=== PATIENT | female | born 1955 | race Caucasian/White ===

== ENCOUNTER 2022-10-22 09:23 | Emergency (ER) | payer MEDICARE, SELFPAY ==
[2022-10-22 09:30] VITALS: BP 148/74; PULSE 90; RESP 16; TEMP 36.2; O2SAT 98
--- NOTE | 2022-10-22 09:54 | ED.GENADULT ---
HPI - General Adult General Chief complaint: Extremity Problem,Nontraumatic Stated complaint: Bilateral Swollen Ankles Time Seen by Provider: 10/22/22 09:41 Source: patient and RN notes reviewed Mode of arrival: ambulatory Limitations: no limitations History of Present Illness HPI narrative: Patient presents today complaining of bilateral ankle swelling x5 days. Denies pain, redness, increased warmth. Denies numbness or tingling. She has been elevating her legs, which does help some. Denies history of hypertension, CHF. History of cellulitis a few months ago for which she was placed on doxycycline. Related Data Home Medications Medication Instructions Recorded Confirmed atorvastatin 80 mg tablet 80 mg PO DAILY 04/14/22 10/22/22 blood sugar diagnostic 04/14/22 10/22/22 donepezil 5 mg tablet 5 mg PO QHS 04/14/22 10/22/22 lancets 30 gauge (OneTouch Delcrista 04/14/22 10/22/22 Lancets) lisinopril 10 mg tablet 10 mg PO DAILY 04/14/22 10/22/22 metformin 500 mg tablet 500 mg PO BID 04/14/22 10/22/22 indapamide 1.25 mg tablet 1.25 mg PO DAILY 10/22/22 10/22/22 linagliptin 5 mg tablet (Tradjenta) 5 mg PO DAILY 10/22/22 10/22/22 pregabalin 50 mg capsule 50 mg PO DAILY 10/22/22 10/22/22 Allergies Allergy/AdvReac Type Severity Reaction Status Date / Time cefaclor [From [facility]] AdvReac Severe Blister Verified 10/22/22 09:26 Penicillins AdvReac Severe Difficulty Verified 10/22/22 09:26 Breathing Review of Systems Review of Systems: CONSTITUTIONAL: Denies body aches, fever, chills, or sweats. EYES: Denies visual changes, redness, or discharge. ENT: Denies rhinorrhea, congestion, sore throat, or otalgia. CARDIOVASCULAR: Denies chest pain, palpitations, or edema. RESPIRATORY: Denies cough or dyspnea. GASTROINTESTINAL: Denies abdominal pain, nausea, vomiting, or diarrhea. GENITOURINARY: Denies dysuria or hematuria. SKIN: Denies rash, itching, or wounds. MUSCULOSKELETAL: Denies back pain, joint pain, or myalgia.+ bilateral ankle swelling. NEUROLOGIC: Denies headache, numbness, tingling, or weakness. PSYCH: Denies depression or anxiety. [facility] Past Medical History Medical History Acute myeloid leukemia Anxiety and depression Cervical cancer Diabetes Neck pain Surgical History Surgical History History of hysterectomy for cancer Family History Family History Mother Acute myocardial infarction Dementia Parkinson disease possible. patient states her mother's hands shaked alot. Father Heart disease Embolism Social History Social History Smoking status: Unknown if ever smoked Comments At time of signature, I have reviewed and agree with nursing past medical, surgical, social and family history unless otherwise noted. Please see nursing chart for further information. There is no relevant family history pertinent to the presenting complaint Exam Narrative: GENERAL: Well-appearing, well-nourished, and in no acute distress. HEAD: Normocephalic, atraumatic. EYES: EOMI. No redness or drainage. Conjunctivae normal. ENT: Mucous membranes pink and moist. NECK: Normal AROM. CHEST: No respiratory distress. Clear to auscultation. HEART: Regular rate and rhythm. No murmur appreciated. Normal peripheral pulses. EXTREMITIES: Bilaterally ankles and distal lower legs have 1 to 2+ pitting edema. No tenderness, erythema, ecchymosis. Distal sensation intact. Capillary refill normal. Pedal pulses normal. Full range of motion of ankles and all toes. SKIN: Warm, dry, no rash. Capillary refill normal. Normal skin turgor. NEURO: No focal deficits. Alert and oriented x3. Gait steady. PSYCH: Normal affect. No signs of depression or anxiety. Course Co
== END 2022-10-22 09:59 | disposition home or self-care (01) ==
PROVIDERS: Emergency Provider Nurse Practitioner; PCP Internal Medicine
DX: R60.0 Localized edema (principal); E11.9 Type 2 diabetes mellitus without complications; C92.00 Acute myeloblastic leukemia, not having achieved remission; Z85.41 Personal history of malignant neoplasm of cervix uteri; Z79.84 Long term (current) use of oral hypoglycemic drugs
CPT/HCPCS: 99211; G0463

== ENCOUNTER 2022-11-24 17:30 | Inpatient (IN) | payer MEDICARE, SELFPAY ==
[2022-11-24] VITALS (11 sets, daily range): BP systolic 95–130; BP diastolic 54–76; PULSE 73–118; RESP 14–21; TEMP 36.4–37.7; O2SAT 94–98; BMI 28.3
--- NOTE | ~2022-11-24 | XR_ITS ---
EXAMINATION: XR chest 1V Exam Date/Time: 11/24/2022 17:50 CDT HISTORY: AMS Comparison: None. RESULT: Lines, tubes, and devices: None. Lungs and pleura: Senescent change, with mild bibasilar atelectasis/scar, otherwise clear. Cardiomediastinal silhouette: Unremarkable. Other: No acute osseous or upper abdominal finding. IMPRESSION: No acute cardiopulmonary process. Reviewed, dictated and finalized at location K.
--- NOTE | ~2022-11-24 | CT_ITS ---
EXAMINATION: CT abdomen pelvis wo con DATE: 11/24/2022 21:07 INDICATION: UTI, AMS TECHNIQUE: Computed tomography (CT) of the abdomen and pelvis was performed without intravenous contr ast. Automated exposure control and iterative reconstruction technique were employed. The dose-length product was 1085.81 mGy-cm. COMPARISON: None. FINDINGS: Lower thorax: Aortic valve, mitral, and coronary artery calcification cardiomegaly. Bilateral depende nt atelectasis. Liver: Normal. Biliary/Gallbladder: Gallbladder is normal. No bile duct dilation. Pancreas: No mass or duct dilation. Spleen: Normal. Adrenals:No mass. Kidneys: Moderate right and mild left perinephric stranding. Mild left pelviectasis. Bilateral nonobs tructing stones. GI tract: Moderate hiatal hernia. No small or large bowel dilation. Normal appendix. Diverticulosis w ithout diverticulitis. Mesentery/Peritoneum: No ascites, mass, or free air. Retroperitoneum: No mass. Atherosclerotic abdominal aortic and/or arterial calcifications. Pelvis: Absent uterus. Urinary bladder is partially decompressed by Palafox catheter and contains a lar ge volume of air.. Soft tissues: Multiple anterior midline fat-containing abdominal hernias, without evident complicatio n. Bones: No acute osseous finding. IMPRESSION: Cardiomegaly. Asymmetric right perinephric stranding, may be secondary to ascending infection/pyelone phritis. The urinary bladder is partially decompressed by a Palafox catheter. Reviewed, dictated and finalized at location K. IMPRESSION: Cardiomegaly. Asymmetric right perinephric stranding, may be secondary to ascen ding infection/pyelonephritis. The urinary bladder is partially decompressed by a Palafox catheter.
--- NOTE | ~2022-11-24 | CT_ITS ---
EXAMINATION: CT brain wo con DATE: 11/24/2022 18:43 INDICATION: AMS . TECHNIQUE: Computed tomography (CT) of the head was performed without intravenous contrast. The mA wa s adjusted according to patient size. Iterative reconstruction technique was employed. The dose-lengt h product was 605.33 mGy-cm. COMPARISON: None. FINDINGS: No acute intracranial hemorrhage or extra-axial fluid collection. No hydrocephalus, mass, or herniation. No acute ischemic infarct. Unremarkable dural venous sinus attenuation. No acute osseous abnormality. The aerated spaces are clear. Mild atrophy and chronic white matter change. Atherosclerotic intracranial calcification. Bilateral l ens replacements. IMPRESSION: No acute intracranial process. Reviewed, dictated and finalized at location K.
--- NOTE | ~2022-11-24 | US_ITS ---
EXAMINATION: US venous doppler [facility] DATE: 11/24/2022 18:45 INDICATION: swelling, redness, ams . TECHNIQUE: Grayscale images without and with compression and Doppler images of the left lower extremi ty veins were obtained. COMPARISON: None FINDINGS: Nonocclusive thrombus with partial compressibility in the distal superficial femoral vein, popliteal vein, posterior tibial veins, and peroneal veins. The left common femoral vein, profunda (deep) femo ral vein, proximal and mid superficial femoral vein, gastrocnemius vein, and greater saphenous vein a re patent. IMPRESSION: 1. Deep venous thrombosis from the distal superficial femoral vein to the posterior tibial and peron eal veins, likely subacute or chronic. Reviewed, dictated and finalized at location K. IMPRESSION: 1. Deep venous thrombosis from the distal superficial femoral vein to the post erior tibial and peroneal veins, likely subacute or chronic.
--- NOTE | ~2022-11-24 | US_ITS ---
US renal BI 11/25/2022 12:13 Procedure: Realtime transabdominal ultrasound of the kidneys and bladder. Indication: Acute renal insufficiency Comparison: No prior studies for comparison. Findings: Renal echotexture is normal bilaterally without hydronephrosis, contour deforming mass or r enal calculus. The right kidney measures 11.5 cm and left kidney measures 11.2 cm. Evaluation of the bladder is limited due to Palafox catheterization with decompression. Impression: 1: Unremarkable renal ultrasound. No stones, masses or hydronephrosis. Reviewed, dictated and finalized at location L. Impression: 1: Unremarkable renal ultrasound. No stones, masses or hydronephrosis.
[2022-11-24 17:44] LABS: Glucose Point of Care 176 mg/dl (65-105)
--- NOTE | 2022-11-24 17:53 | ECG_ITS ---
Measurements Intervals [place] Rate: 113 P: 32 NE: 167 QRS: -6 QRSD: 86 T: 32 QT: 322 QTc: 442 Interpretive Statements SINUS TACHYCARDIA EARLY PRECORDIAL R/S TRANSITION NONSPECIFIC T-WAVE ABNORMALITY- HIGH LATERAL LEADS ABNORMAL ECG NO PREVIOUS ECG AVAILABLE FOR COMPARISON Electronically Signed On 11-24-2022 18:58:19 CDT by Vidal Lynch D.O.
--- NOTE | 2022-11-24 18:03 | ED.AMS ---
HPI - Altered Mental Status General Chief Complaint: Altered Mental Status <Haleigh Delgadillo PA-C - Last Filed: 11/25/22 00:37> Stated Complaint: sepsis <Haleigh Delgadillo PA-C - Last Filed: 11/25/22 00:37> Time Seen by Provider: 11/24/22 17:44 <Haleigh Delgadillo PA-C - Last Filed: 11/25/22 00:37> History of Present Illness HPI narrative: 67-year-old female with a history of type 2 diabetes here via EMS due to altered mental status and weakness. Patient was last seen by her family 3 days ago. She was acting normal at that time, however according to family the past 3 days she has not been answering phone calls or text messages causing them to do a wellness visit today. Patient was found in her house lying in her own feces and urine, alert and oriented x1 which is off from her baseline ANO x3. Patient currently denies any pain. She is unsure what happened today or for the past 3 days, which limits history. <MADDY Cantrell Last Filed: 11/25/22 00:37> Related Data Home Medications: Home Medications Medication Instructions Recorded Confirmed atorvastatin 80 mg tablet 80 mg PO DAILY 04/14/22 10/22/22 blood sugar diagnostic 04/14/22 10/22/22 donepezil 5 mg tablet 5 mg PO QHS 04/14/22 10/22/22 lancets 30 gauge (OneTouch Delica 04/14/22 10/22/22 Lancets) lisinopril 10 mg tablet 10 mg PO DAILY 04/14/22 10/22/22 metformin 500 mg tablet 500 mg PO BID 04/14/22 10/22/22 indapamide 1.25 mg tablet 1.25 mg PO DAILY 10/22/22 10/22/22 linagliptin 5 mg tablet (Tradjenta) 5 mg PO DAILY 10/22/22 10/22/22 pregabalin 50 mg capsule 50 mg PO DAILY 10/22/22 10/22/22 <MADDY Cantrell Last Filed: 11/25/22 00:37> Allergies/Adverse Reactions: Allergies Allergy/AdvReac Type Severity Reaction Status Date / Time cefaclor [From [facility]] AdvReac Severe Blister Verified 10/22/22 09:26 Penicillins AdvReac Severe Difficulty Verified 10/22/22 09:26 Breathing <Haleigh Delgadillo PA-C - Last Filed: 11/25/22 00:37> Review of Systems Review of Systems: ROS unobtainable: Yes unobtainable due to mental status <Haleigh Delgadillo PA-C - Last Filed: 11/25/22 00:37> [facility] Past Medical History Medical History: Medical History Acute myeloid leukemia Anxiety and depression Cervical cancer Diabetes Neck pain <Haleigh Delgadillo PA-C - Last Filed: 11/25/22 00:37> Surgical History Surgical History: Surgical History History of hysterectomy for cancer <Haleigh Delgadillo PA-C - Last Filed: 11/25/22 00:37> Family History Family History: Family History Mother Acute myocardial infarction Dementia Parkinson disease possible. patient states her mother's hands shaked alot. Father Heart disease Embolism <Haleigh Delgadillo PA-C - Last Filed: 11/25/22 00:37> Social History Social History: Social History Smoking status: Never smoker Alcohol intake: never Substance use: never Substance use type: does not use Spiritual care concerns: No <Haleigh Delgadillo PA-C - Last Filed: 11/25/22 00:37> Exam Narrative: APPEARANCE: Alert and oriented x2. Head: Normocephalic and atraumatic. EYES: PERRLA/EOMI, conjunctivae clear NOSE: No nasal drainage EARS: External ear normal in appearance THROAT: Oropharynx is clear. Mucous membranes are moist. NECK: Supple. No adenopathy, no masses. RESPIRATORY: Airway patent, respirations nonlabored. Clear to auscultation bilaterally, no rales, rhonchi, wheezing. CARDIOVASCULAR: Tachycardic. ABDOMINAL: Normoactive bowel sounds. Soft, nontender, nondistended. No rebound tenderness or guarding. MUSCULOSKELETAL: Ther
[2022-11-24 18:09] LABS: Hematocrit 35.1 % (37.0-47.0); Hemoglobin 11.8 g/dL (12.0-15.0); Immature Platelet Fraction Pct 8.4 % (0.9-11.2); Mean Corpuscular HGB Conc 33.6 g/dl (32-36); Mean Corpuscular Hemoglobin 29.9 pg (26-34); Mean Corpuscular Volume 88.9 fl (80-100); Mean Platelet Volume 12.1 fl (7.4-10.4); Platelet Count Result 98 k/mm3 (150-375); Red Blood Count 3.95 M/mm3 (4.2-5.4); Red Cell Distribution Width 13.7 % (11.5-14.5); White Blood Count 20.4 K/mm3 (4.5-10.0)
[2022-11-24 18:19] LABS: Lactic Acid Reflex 2.1 mmol/L (0.7-2.0)
[2022-11-24 18:20] LABS: Ammonia < 9 umol/L (9-30)
[2022-11-24 18:21] LABS: Appearance Urine Turbid (Clear); Bacteria Urine 4+ /hpf; Bilirubin Urine 1+ (Negative); Blood Urine 3+ (Negative); Color Urine Dark Yellow (Yellow); Glucose Urine UA Negative (Negative); Hyaline Casts Urine Present /lpf; Ketones Urine Trace mg/dL (Negative); Leukocyte Esterase Ur 3+ LEU/UL (Negative); Nitrate Urine Negative (Negative); Non Pathogenic Casts >20; Protein Urine 2+ mg/dL (Negative); RBC Urine 21-50 /hpf (0-2); Specific Grav Ur 1.019 (1.001-1.035); Squamous Epithelial Cell Urine Few /hpf (Few); WBC Urine >100 /hpf
[2022-11-24 18:22] LABS: Add Urine Microscopic? YES
[2022-11-24] MEDS: SODIUM CHLORIDE 0.9% IV 1,000 ML 999 ML IV CONT ×2 (18:24→19:13)
[2022-11-24] MEDS: ONDANSETRON INJ 4 MG/2 ML VIAL IV PUSH (18:33)
[2022-11-24 18:41] LABS: Band Neutrophils Percent 15 % (0-6); Lymphocytes Absolute Manual 1.42 K/mm3 (1.1-4.5); Monocytes Absolute Manual 1.02 K/mm3 (0.1-0.90); Monocytes Percent Manual 5 % (3-9); Neutrophils Absolute Manual 17.95 K/mm3 (1.7-7.2); Neutrophils Percent Manual 73 % (46-73); Total Cells Counted 100
[2022-11-24 18:42] LABS: Alanine Aminotransferase 56 U/L (6-35); Albumin Level 3.8 g/dL (3.5-5.1); Alkaline Phosphatase 75 U/L (38-126); Anion Gap 10 mmol/L (8-16); Aspartate Amino Transferase 55 U/L (14-36); Bilirubin,Total 0.8 mg/dL (0.2-1.3); Blood Urea Nitrogen 71 mg/dL (7-17); Calcium 8.1 mg/dL (8.4-10.2); Carbon Dioxide 26 mmol/L (22-30); Chloride 104 mmol/L (98-107); Creatine Kinase 210 U/L (30-135); Estimated CRCL calculation 13 ml/min; Estimated Glomerular Filt Rate 12; Glucose 175 mg/dL (65-110); Platelet Estimate Decreased (Adequate); Potassium 4.7 mmol/L (3.4-5.0); Schistocytes None Seen (NORMAL); Sodium 140 mmol/L (137-145)
[2022-11-24 19:32] LABS: INR 1.4; Prothrombin Time 17.3 Seconds (11.1-14.7)
[2022-11-24 19:33] LABS: Partial Thromboplastin Time 38.3 SECONDS (22.3-36.8)
[2022-11-24] MEDS: MAGNESIUM SULFATE 3GM/D5W100ML 3 GM/100 ML BAG IVPB (19:35)
[2022-11-24] MEDS: SODIUM CHLORIDE 0.9% IV 1,000 ML 150 ML IV CONT (20:45)
[2022-11-24] MEDS: AZTREONAM 1 GM in SODIUM CHLORIDE 0.9% IV 50 ML 100 ML IVPB (20:47)
[2022-11-24] MEDS: APIXABAN 5 MG TABLET 10 MG PO (20:48)
--- NOTE | 2022-11-24 20:56 | PM.IMHP ---
H&P: HPI History of Present Illness Date/Time: 11/24/22 20:56 Chief Complaint: 67 years old female past medical history of hypertension diabetes alert oriented x3 at baseline presented to the hospital with altered mental status patient is poor historian patient was presented by EMS patient was not responded to the family last normal was 3 days ago at the ER patient was found to have significant leukocytosis elevated lactic acid acute renal failure UA was abnormal patient was recently treated for cellulitis of lower extremity with antibiotics patient was found confuse soiled with feces at home in the ER patient was found to have severe sepsis associated with UTI acute renal failure also was found to have lower extremity DVT patient was given 1 dose of therapeutic Lovenox will start heparin drip in a.m. patient was treated with empiric antibiotic patient has prolonged QTC interval telemetry was ordered. Review of Systems Review of Systems: limited due to mental status change [facility] Past Medical History Medical History (Updated 11/24/22 @ 21:01 by Shanti Porras MD) Acute myeloid leukemia Anxiety and depression Cervical cancer Diabetes Neck pain Surgical History Surgical History History of hysterectomy for cancer Family History Family History Mother Acute myocardial infarction Dementia Parkinson disease possible. patient states her mother's hands shaked alot. Father Heart disease Embolism Social History Social History Smoking status: Unknown if ever smoked Meds Home Medications and Allergies Home Medications Medication Instructions Recorded Confirmed Type atorvastatin 80 mg tablet 80 mg PO DAILY 04/14/22 10/22/22 History blood sugar diagnostic 04/14/22 10/22/22 History donepezil 5 mg tablet 5 mg PO QHS 04/14/22 10/22/22 History lancets 30 gauge (OneTouch Delica 04/14/22 10/22/22 History Lancets) lisinopril 10 mg tablet 10 mg PO DAILY 04/14/22 10/22/22 History metformin 500 mg tablet 500 mg PO BID 04/14/22 10/22/22 History indapamide 1.25 mg tablet 1.25 mg PO DAILY 10/22/22 10/22/22 History linagliptin 5 mg tablet (Tradjenta) 5 mg PO DAILY 10/22/22 10/22/22 History pregabalin 50 mg capsule 50 mg PO DAILY 10/22/22 10/22/22 History Allergies Allergy/AdvReac Type Severity Reaction Status Date / Time cefaclor [From [facility]] AdvReac Severe Blister Verified 10/22/22 09:26 Penicillins AdvReac Severe Difficulty Verified 10/22/22 09:26 Breathing Vital Signs Vital Signs - 24 hr 11/24/22 17:35 11/24/22 18:31 11/24/22 18:46 Temperature 98.8 F 99.9 F H 99.7 F H Pulse Rate 117 H 111 H 114 H Respiratory Rate 14 15 17 Blood Pressure 110/76 Pulse Oximetry 97 97 11/24/22 19:14 11/24/22 19:15 11/24/22 20:11 Temperature 97.5 F L Pulse Rate 114 H 112 H 109 H Respiratory Rate 18 18 Blood Pressure 115/56 L 110/54 L Pulse Oximetry 97 96 Exam Narrative: GENERAL: Well appearing, well-nourished, non-toxic, in no acute distress. HEAD: Normocephalic, atraumatic. NECK: Supple. No adenopathy, no masses. RESPIRATORY: Airway patent, respirations nonlabored. Clear to auscultation bilaterally, no rales, rhonchi, wheezing. CARDIOVASCULAR: Regular rate and rhythm without murmurs, rubs, or gallops. Peripheral pulses 2+ and equal bilaterally. ABDOMINAL: Soft, nontender, nondistended, no hepatosplenomegaly. Normoactive BS. MUSCULOSKELETAL: leg swelling SKIN: Warm, dry, normal color. No rashes. NEURO: intermittent confusionmove all extremities. PSYCHIATRIC: Appropriate mood and affect. Normal interaction. H&P: Results Labs Labs: Short CBC 11/24/22 Range/Units 17:58 WBC 20.4 H (4.5-10.0) K/mm3 Hgb 11.8 L (12.0-15.0) g/dL Hct 35.1 L (37.0-47.0) %
[2022-11-24 21:05] LABS: Reflex Lactic Acid Yes or No Add Lactic
[2022-11-24] MEDS: PHENAZOPYRIDINE HCL 100 MG TABLET PO (21:29)
[2022-11-24] MEDS: metroNIDAZOLE 500 MG/ISO 100ML 500 MG/100 ML BAG 100 MG IVPB (22:36)
--- NOTE | 2022-11-24 22:39 | PC.NURSE ---
Patient had rich catheter in place when 1899 shift nurse came on shift. Spoke with Haleigh STRATTON who stated that day shift had placed rich and order will be put in. Rich catheter now charted.
--- NOTE | 2022-11-24 23:20 | ADMGEN ---
This patient, Amanda Spain, was admitted to IMU Room 207-01. Patient/family oriented to hospital policies and general routines including ID bracelet, bed and alarms, visiting hours, pain management, procedures, bathroom and other care routines, personal items, smoking policy, room service/diet, and visiting hours. Information on how to activate the Rapid Response Team has been discussed. Patient/Family are encouraged to report perceived risks to care and to ask questions if they do not understand what they are told or what they should do.
[2022-11-24] MEDS: HYDROcodone/acetaminophen (*CRX) 5-325 MG TABLET 1 TAB PO (23:37)
[2022-11-25] VITALS (14 sets, daily range): BP systolic 111–132; BP diastolic 50–71; PULSE 88–127; RESP 16–22; TEMP 36.4–37.4; O2SAT 93–97
[2022-11-25 04:50] LABS: Hematocrit 30.5 % (37.0-47.0); Hemoglobin 9.9 g/dL (12.0-15.0); Immature Platelet Fraction Pct 5.5 % (0.9-11.2); Mean Corpuscular HGB Conc 32.5 g/dl (32-36); Mean Corpuscular Hemoglobin 28.9 pg (26-34); Mean Corpuscular Volume 88.9 fl (80-100); Mean Platelet Volume 11.4 fl (7.4-10.4); Platelet Count Result 73 k/mm3 (150-375); Red Blood Count 3.43 M/mm3 (4.2-5.4); Red Cell Distribution Width 13.5 % (11.5-14.5); White Blood Count 13.3 K/mm3 (4.5-10.0)
[2022-11-25 05:04] LABS: Alanine Aminotransferase 38 U/L (6-35); Albumin Level 2.8 g/dL (3.5-5.1); Alkaline Phosphatase 80 U/L (38-126); Anion Gap 7 mmol/L (8-16); Aspartate Amino Transferase 43 U/L (14-36); Bilirubin,Total 0.6 mg/dL (0.2-1.3); Blood Urea Nitrogen 73 mg/dL (7-17); Calcium 7.3 mg/dL (8.4-10.2); Carbon Dioxide 25 mmol/L (22-30); Chloride 109 mmol/L (98-107); Estimated CRCL calculation 16 ml/min; Estimated Glomerular Filt Rate 16; Glucose 164 mg/dL (65-110); Potassium 3.4 mmol/L (3.4-5.0); Sodium 141 mmol/L (137-145)
[2022-11-25 05:22] LABS: Band Neutrophils Percent 7 % (0-6); Lymphocytes Absolute Manual 0.66 K/mm3 (1.1-4.5); Monocytes Absolute Manual 0.93 K/mm3 (0.1-0.90); Monocytes Percent Manual 7 % (3-9); Neutrophils Percent Manual 81 % (46-73); Total Cells Counted 100
[2022-11-25 05:23] LABS: Acanthocytes 3+ (NORMAL); Anisocytosis 1+ (NORMAL); Ovalocytes 2+ (NORMAL); Platelet Estimate Decreased (Adequate); Schistocytes None Seen (NORMAL)
[2022-11-25] MEDS: SODIUM CHLORIDE 0.9% IV 1,000 ML 100 ML IV CONT ×2 (05:39→18:21)
[2022-11-25] MEDS: metroNIDAZOLE 500 MG/ISO 100ML 500 MG/100 ML BAG 100 MG IVPB (05:39)
[2022-11-25] MEDS: AZTREONAM 1 GM in SODIUM CHLORIDE 0.9% IV 50 ML 100 ML IVPB ×2 (09:18→20:40)
[2022-11-25] MEDS: APIXABAN 5 MG TABLET 10 MG PO ×2 (09:19→20:41)
[2022-11-25] MEDS: FAMOTIDINE 20 MG TABLET PO ×2 (09:19→20:40)
--- NOTE | 2022-11-25 12:07 | PM.IMPN ---
Progress Note: A&P Assessment and Plan (1) Severe sepsis: Code(s): A41.9 - Sepsis, unspecified organism; R65.20 - Severe sepsis without septic shock Status: Acute Assessment and Plan: probably related to UTI IV Rocephin follow urine and blood culture (2) UTI (urinary tract infection): Code(s): N39.0 - Urinary tract infection, site not specified Status: Acute Assessment and Plan: continue IV antibiotics (3) Acute renal failure: Code(s): N17.9 - Acute kidney failure, unspecified Status: Acute Assessment and Plan: most likely related to severe sepsis. Continue IV fluids. Renal ultrasound ordered (4) Diabetes: Code(s): E11.9 - Type 2 diabetes mellitus without complications Status: Acute Assessment and Plan: insulin sliding scale (5) Acute metabolic encephalopathy: Code(s): G93.41 - Metabolic encephalopathy Status: Acute Assessment and Plan: most likely related to severe sepsis CT head unremarkable (6) DVT (deep venous thrombosis): Code(s): I82.409 - Acute embolism and thrombosis of unspecified deep veins of unspecified lower extremity Status: Acute Assessment and Plan: ?Deep venous thrombosis from the distal superficial femoral vein to the posterior tibial and peroneal veins, likely subacute or chronic received Lovenox Continue Eliquis (7) Hyperlipidemia: Code(s): E78.5 - Hyperlipidemia, unspecified Status: Acute Assessment and Plan: patient at home on statin (8) Acute myeloid leukemia: Code(s): C92.00 - Acute myeloblastic leukemia, not having achieved remission Status: Acute Subjective Date/time seen: 11/25/22 12:07 Interval history: Patient is confused. Oriented only to person Review of Systems Review of Systems: limited due to mental status change Exam Narrative: GENERAL: Well appearing, well-nourished, non-toxic, in no acute distress. HEAD: Normocephalic, atraumatic. NECK: Supple. No adenopathy, no masses. RESPIRATORY: Airway patent, respirations nonlabored. Clear to auscultation bilaterally, no rales, rhonchi, wheezing. CARDIOVASCULAR: Regular rate and rhythm without murmurs, rubs, or gallops. Peripheral pulses 2+ and equal bilaterally. ABDOMINAL: Soft, nontender, nondistended, no hepatosplenomegaly. Normoactive BS. MUSCULOSKELETAL: leg swelling SKIN: Warm, dry, normal color. No rashes. NEURO: intermittent confusionmove all extremities. PSYCHIATRIC: Appropriate mood and affect. Normal interaction. Objective Data Vital Signs Vital Signs: Vital Signs - 24 hr 11/24/22 17:35 11/24/22 18:31 11/24/22 18:46 Temperature 98.8 F 99.9 F H 99.7 F H Pulse Rate 117 H 111 H 114 H Respiratory Rate 14 15 17 Blood Pressure 110/76 Pulse Oximetry 97 97 Oxygen Delivery 11/24/22 19:14 11/24/22 19:15 11/24/22 20:11 Temperature 97.5 F L Pulse Rate 114 H 112 H 109 H Respiratory Rate 18 18 Blood Pressure 115/56 L 110/54 L Pulse Oximetry 97 96 Oxygen Delivery 11/24/22 21:43 11/24/22 22:48 11/24/22 23:11 Temperature 99.3 F 97.6 F Pulse Rate 105 H 114 H 73 Respiratory Rate 17 21 H 20 Blood Pressure 126/59 L 130/72 95/66 L Pulse Oximetry 94 98 97 Oxygen Delivery 11/24/22 23:16 11/24/22 23:53 11/24/22 23:53 Temperature Pulse Rate 73 118 H Respiratory Rate Blood Pressure Pulse Oximetry Oxygen Delivery Room Air 11/25/22 02:00 11/25/22 04:00 11/25/22 04:00 Temperature 98.0 F Pulse Rate 125 H 119 H 127 H Respiratory Rate 20 Blood Pressure 111/50 L Pulse Oximetry 97 Oxygen Delivery 11/25/22 04:00 11/25/22 08:00 11/25/22 10:05 Temperature 99.3 F Pulse Rate 127 H 118 H Respiratory Rate 20 20 Blood Pressure 125/71 Pulse Oximetry 97 95 95 Oxygen Delivery Room Air Room Air Intake/Output Intake/Output: Intake & Output 11/22/22 11/23/22 11/24/22 11/25/22 23:
[2022-11-25 18:28] LABS: Glucose Point of Care 153 mg/dl (65-105)
[2022-11-25 20:38] LABS: Glucose Point of Care 134 mg/dl (65-105)
[2022-11-25] MEDS: HYDROcodone/acetaminophen (*CRX) 5-325 MG TABLET 1 TAB PO (20:40)
[2022-11-26] VITALS (8 sets, daily range): BP systolic 116–136; BP diastolic 57–72; PULSE 76–94; RESP 16–20; TEMP 35.8–37.2; O2SAT 94–100
[2022-11-26 04:25] LABS: Hematocrit 31.7 % (37.0-47.0); Hemoglobin 10.2 g/dL (12.0-15.0); Immature Platelet Fraction Pct 7.7 % (0.9-11.2); Mean Corpuscular HGB Conc 32.2 g/dl (32-36); Mean Corpuscular Hemoglobin 29.3 pg (26-34); Mean Corpuscular Volume 91.1 fl (80-100); Platelet Count Result 58 k/mm3 (150-375); Red Blood Count 3.48 M/mm3 (4.2-5.4); Red Cell Distribution Width 13.8 % (11.5-14.5); White Blood Count 11.2 K/mm3 (4.5-10.0)
[2022-11-26 04:33] LABS: Anion Gap 6 mmol/L (8-16); Blood Urea Nitrogen 65 mg/dL (7-17); Calcium 7.1 mg/dL (8.4-10.2); Carbon Dioxide 25 mmol/L (22-30); Chloride 107 mmol/L (98-107); Estimated CRCL calculation 26 ml/min; Estimated Glomerular Filt Rate 28; Glucose 118 mg/dL (65-110); Potassium 3.3 mmol/L (3.4-5.0); Sodium 138 mmol/L (137-145)
[2022-11-26] MEDS: HYDROcodone/acetaminophen (*CRX) 5-325 MG TABLET 1 TAB PO ×3 (04:53→21:31)
[2022-11-26] MEDS: SODIUM CHLORIDE 0.9% IV 1,000 ML 100 ML IV CONT ×2 (04:54→17:12)
[2022-11-26 05:04] LABS: Anisocytosis 2+ (NORMAL); Band Neutrophils Percent 25 % (0-6); Eosinophils Absolute Manual 0.11 K/mm3 (0.02-0.5); Eosinophils Percent Manual 1 % (0-4); Lymphocytes Absolute Manual 0.67 K/mm3 (1.1-4.5); Metamyelocytes Percent 1 %; Microcytosis 2+ (NORMAL); Monocytes Absolute Manual 0.44 K/mm3 (0.1-0.90); Monocytes Percent Manual 4 % (3-9); Neutrophils Absolute Manual 9.85 K/mm3 (1.7-7.2); Neutrophils Percent Manual 63 % (46-73); Platelet Estimate Decreased (Adequate); Total Cells Counted 100
[2022-11-26 05:05] LABS: Acanthocytes 1+ (NORMAL); Burr Cells 3+ (NORMAL); Macrocytosis 1+ (NORMAL); Poikilocytosis 3+ (NORMAL); Schistocytes None Seen (NORMAL)
[2022-11-26] MEDS: FAMOTIDINE 20 MG TABLET PO ×2 (08:42→21:29)
[2022-11-26] MEDS: AZTREONAM 1 GM in SODIUM CHLORIDE 0.9% IV 50 ML 100 ML IVPB ×2 (08:42→21:29)
[2022-11-26] MEDS: APIXABAN 5 MG TABLET 10 MG PO ×2 (08:42→21:29)
--- NOTE | 2022-11-26 09:24 | WPDNEUROLOGY ---
Neurology EEG Report General Information Date of Study: 11/25/22 TEST Routine EEG DIAGNOSIS Confusion CONDITION OF RECORDING Drowsy, asleep EEG NUMBER [id number] CLINICAL HISTORY Patient unable to rpovide any history. She was found at home unresponsive and remains confused and lethargic. EEG DESCRIPTION The recording is continuous. The background rhythm is slowed in the range of diffuse theta and delta range waves. There are no significant asymmetries in background. Intermittent triphasic waves are noted throughout the recording. Normal sleep architecture was not observed. There are no epileptiform discharges or electrographic seizures noted during the recording. Hyperventilation and photic stimulation were not performed. IMPRESSION This is an abnormal routine EEG due to the presence of generalized slowing of background as well as intermittent triphasic waves noted throughout the recording. These findings can be seen in the setting of metabolic encephalopathy due to unspecified etiology. Clinical correlation is recommended.
--- NOTE | 2022-11-26 10:54 | PM.IMPN ---
Progress Note: A&P Assessment and Plan (1) Severe sepsis: Code(s): A41.9 - Sepsis, unspecified organism; R65.20 - Severe sepsis without septic shock Status: Acute Assessment and Plan: probably related to UTI IV Rocephin Blood culture and urine culture growing E coli. Sensitivities pending (2) UTI (urinary tract infection): Code(s): N39.0 - Urinary tract infection, site not specified Status: Acute Assessment and Plan: continue IV Rocephin. Urine culture growing E coli (3) Acute renal failure: Code(s): N17.9 - Acute kidney failure, unspecified Status: Acute Assessment and Plan: Creatinine significantly improved. most likely related to severe sepsis. Continue IV fluids. Renal ultrasound normal (4) Diabetes: Code(s): E11.9 - Type 2 diabetes mellitus without complications Status: Acute Assessment and Plan: insulin sliding scale (5) Acute metabolic encephalopathy: Code(s): G93.41 - Metabolic encephalopathy Status: Acute Assessment and Plan: most likely related to severe sepsis CT head unremarkable Eeg conforms metabolic encephalopathy (6) DVT (deep venous thrombosis): Code(s): I82.409 - Acute embolism and thrombosis of unspecified deep veins of unspecified lower extremity Status: Acute Assessment and Plan: ?Deep venous thrombosis from the distal superficial femoral vein to the posterior tibial and peroneal veins, likely subacute or chronic received Lovenox Continue Eliquis (7) Hyperlipidemia: Code(s): E78.5 - Hyperlipidemia, unspecified Status: Acute Assessment and Plan: patient at home on statin (8) Memory loss: Code(s): R41.3 - Other amnesia Status: Acute Assessment and Plan: Patient's sister reports patient is forgetful. Patient denies. Will get PT and OT. Will ask OT to do a mini-mental status examination. Subjective Date/time seen: 11/26/22 10:54 Interval history: Awake alert oriented Review of Systems Review of Systems: All systems reviewed & are unremarkable except as noted in HPI and below Exam Narrative: GENERAL: Well appearing, well-nourished, non-toxic, in no acute distress. HEAD: Normocephalic, atraumatic. NECK: Supple. No adenopathy, no masses. RESPIRATORY: Airway patent, respirations nonlabored. Clear to auscultation bilaterally, no rales, rhonchi, wheezing. CARDIOVASCULAR: Regular rate and rhythm without murmurs, rubs, or gallops. Peripheral pulses 2+ and equal bilaterally. ABDOMINAL: Soft, nontender, nondistended, no hepatosplenomegaly. Normoactive BS. MUSCULOSKELETAL: leg swelling SKIN: Warm, dry, normal color. No rashes. NEURO: intermittent confusionmove all extremities. PSYCHIATRIC: Appropriate mood and affect. Normal interaction. Objective Data Vital Signs Vital Signs: Vital Signs - 24 hr 11/25/22 12:00 11/25/22 12:00 11/25/22 16:00 Temperature 99.1 F Pulse Rate 107 H 110 H 93 Respiratory Rate 18 Blood Pressure 121/54 L Pulse Oximetry 95 Oxygen Delivery 11/25/22 14:00 11/25/22 16:45 11/25/22 18:00 Temperature 98 F Pulse Rate 106 H 106 H 106 H Respiratory Rate 22 H Blood Pressure 124/55 L Pulse Oximetry 95 Oxygen Delivery 11/25/22 20:00 11/25/22 20:00 11/25/22 20:00 Temperature 98.4 F Pulse Rate 103 H 91 91 Respiratory Rate 20 20 Blood Pressure 132/53 L Pulse Oximetry 93 93 Oxygen Delivery Room Air 11/25/22 21:42 11/25/22 23:31 11/25/22 23:50 Temperature 97.6 F Pulse Rate 88 103 H 97 Respiratory Rate 16 Blood Pressure 125/61 Pulse Oximetry 96 Oxygen Delivery 11/25/22 23:50 11/26/22 02:00 11/26/22 04:00 Temperature Pulse Rate 98 76 93 Respiratory Rate 16 Blood Pressure Pulse Oximetry 96 Oxygen Delivery Room Air 11/26/22 04:00 11/26/22 04:00 11/26/22 05:51 Temperature 97.1 F L Pulse Rate 93 85 90 Respiratory Rat
[2022-11-26 12:19] LABS: Glucose Point of Care 119 mg/dl (65-105)
--- NOTE | 2022-11-26 12:41 | PC.NURSE ---
This patient, Amanda Spain, was transferred to ROOM [id number] on 11/26/22 at 1242. Personal belongings sent with patient. Report given to 3 medical to Sariah Nurse. Appropriate documentation sent with patient.
[2022-11-26 17:09] LABS: Glucose Point of Care 113 mg/dl (65-105)
[2022-11-26] MEDS: LIDOCAINE 5% PATCH 1 PATCH TRANSDERM (18:06)
[2022-11-26 21:51] LABS: Glucose Point of Care 110 mg/dl (65-105)
[2022-11-27] MEDS: SODIUM CHLORIDE 0.9% IV 1,000 ML 100 ML IV CONT ×3 (03:30→21:21)
[2022-11-27 05:10] VITALS: BP 149/76; PULSE 95; RESP 16; TEMP 36.4; O2SAT 100
[2022-11-27] MEDS: HYDROcodone/acetaminophen (*CRX) 5-325 MG TABLET 1 TAB PO ×3 (06:21→21:20)
[2022-11-27 07:00] LABS: Hematocrit 35.9 % (37.0-47.0); Hemoglobin 11.4 g/dL (12.0-15.0); Immature Platelet Fraction Pct 7.6 % (0.9-11.2); Mean Corpuscular HGB Conc 31.8 g/dl (32-36); Mean Corpuscular Hemoglobin 28.4 pg (26-34); Mean Corpuscular Volume 89.3 fl (80-100); Mean Platelet Volume 11.4 fl (7.4-10.4); Platelet Count Result 55 k/mm3 (150-375); Red Blood Count 4.02 M/mm3 (4.2-5.4); Red Cell Distribution Width 13.6 % (11.5-14.5); White Blood Count 8.2 K/mm3 (4.5-10.0)
[2022-11-27 07:50] LABS: Band Neutrophils Percent 10 % (0-6); Basophils Absolute Manual 0.08 K/mm3 (0.0-0.1); Basophils Percent Manual 1 % (0-1); Eosinophils Absolute Manual 0.16 K/mm3 (0.02-0.5); Eosinophils Percent Manual 2 % (0-4); Lymphocytes Percent Manual 11 % (18-44); Monocytes Absolute Manual 0.49 K/mm3 (0.1-0.90); Monocytes Percent Manual 6 % (3-9); Neutrophils Absolute Manual 6.56 K/mm3 (1.7-7.2); Neutrophils Percent Manual 70 % (46-73); Total Cells Counted 100
[2022-11-27 07:51] LABS: Platelet Estimate Decreased (Adequate)
[2022-11-27 07:52] LABS: Burr Cells 3+ (NORMAL); Schistocytes None Seen (NORMAL)
[2022-11-27 08:43] LABS: Glucose Point of Care 101 mg/dl (65-105)
[2022-11-27 09:10] VITALS: O2SAT 95
[2022-11-27] MEDS: APIXABAN 5 MG TABLET 10 MG PO ×2 (09:10→21:19)
[2022-11-27] MEDS: FAMOTIDINE 20 MG TABLET PO ×2 (09:10→21:19)
[2022-11-27] MEDS: LIDOCAINE 5% PATCH 1 PATCH TRANSDERM (09:15)
[2022-11-27] MEDS: AZTREONAM 1 GM in SODIUM CHLORIDE 0.9% IV 50 ML 100 ML IVPB ×2 (09:15→21:20)
[2022-11-27 09:40] VITALS: O2SAT 94
--- NOTE | 2022-11-27 11:15 | PM.IMPN ---
Progress Note: A&P Assessment and Plan (1) Severe sepsis: Code(s): A41.9 - Sepsis, unspecified organism; R65.20 - Severe sepsis without septic shock Status: Acute Assessment and Plan: Due to UTI IV Aztreonam Blood culture and urine culture growing E coli Sensitive to Ceftriaxone, so 11/27 switched that (2) UTI (urinary tract infection): Code(s): N39.0 - Urinary tract infection, site not specified Status: Acute Assessment and Plan: 11/27 switched from Aztreonam to Ceftriaxone, antibiotic day 3 Blood &Urine culture growing sensitive E coli (3) Acute renal failure: Code(s): N17.9 - Acute kidney failure, unspecified Status: Acute Assessment and Plan: Creatinine improved to 1.8 on 11/26, f/u labs Renal ultrasound normal (4) Diabetes: Code(s): E11.9 - Type 2 diabetes mellitus without complications Status: Acute Assessment and Plan: insulin sliding scale 11/27 FBS 101 (5) Acute metabolic encephalopathy: Code(s): G93.41 - Metabolic encephalopathy Status: Acute Assessment and Plan: most likely related to severe sepsis CT head unremarkable Eeg confirms metabolic encephalopathy 11/27 Resolved (6) DVT (deep venous thrombosis): Code(s): I82.409 - Acute embolism and thrombosis of unspecified deep veins of unspecified lower extremity Status: Acute Assessment and Plan: ?Deep venous thrombosis from the distal superficial femoral vein to the posterior tibial and peroneal veins, likely subacute or chronic received Lovenox Continue Eliquis (7) Neck pain: Code(s): M54.2 - Cervicalgia Status: Acute Assessment and Plan: Tender posterior paracervical and upper trapezii Clinically musculoskeletal pain (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 Posterior neck to nuchal. Worse with movement. No weakness or numbness. No visual sx's. No dizziness. Mentation seems NL to her and to daughter at bedside. Denied CP, sob, gi/gu issues. Review of Systems Review of Systems: All systems reviewed & are unremarkable except as noted in HPI and below Exam Narrative: GENERAL: Well appearing, well-nourished, non-toxic, in no acute distress. HEAD: Normocephalic, atraumatic. NECK: Supple. No adenopathy, no masses. RESPIRATORY: Airway patent, respirations nonlabored. Clear to auscultation bilaterally, no rales, rhonchi, wheezing. CARDIOVASCULAR: Regular rate and rhythm without murmurs, rubs, or gallops. Peripheral pulses 2+ and equal bilaterally. ABDOMINAL: Soft, nontender, nondistended, no hepatosplenomegaly. Normoactive BS. MUSCULOSKELETAL: Tender posterior neck, upper borders of trapezii bilaterally SKIN: Warm, dry, normal color. No rashes. NEURO: CN symmetric to inspection, tone and strength in UE & LE bilaterally PSYCHIATRIC: Appropriate mood and affect. Normal interaction. Objective Data Vital Signs Vital Signs: Vital Signs - 24 hr 11/26/22 12:00 11/26/22 12:00 11/26/22 15:00 Temperature 96.4 F L 97.3 F L Pulse Rate 86 85 94 Respiratory Rate 20 16 Blood Pressure 120/57 L 136/72 Pulse Oximetry 100 100 Oxygen Delivery 11/26/22 20:18 11/27/22 05:10 11/27/22 09:40 Temperature 98.9 F 97.6 F Pulse Rate 94 95 Respiratory Rate 18 16 Blood Pressure 132/62 149/76 H Pulse Oximetry 94 100 94 Oxygen Delivery Room Air Intake/Output Intake/Output: Intake & Output 11/24/22 11/25/22 11/26/22 11/27/22 23:59 23:59 23:59 23:59 Intake Total 2250 2040 3650 1400 Output Total 1950 1785 900 Balance 2250 90 1865 500 Meds/Results Medications: Active Medications Generic Name Dose Route Start Last Admin Trade Name Freq
[2022-11-27 11:55] VITALS: BMI 10.0
[2022-11-27 11:55] LABS: Glucose Point of Care 99 mg/dl (65-105)
[2022-11-27 16:00] VITALS: BP 151/75; PULSE 99; RESP 18; TEMP 36.4; O2SAT 99
[2022-11-27 17:34] LABS: Glucose Point of Care 127 mg/dl (65-105)
[2022-11-27 19:44] VITALS: BP 150/66; PULSE 100; RESP 16; TEMP 36.6; O2SAT 99
[2022-11-27 20:53] LABS: Glucose Point of Care 130 mg/dl (65-105)
[2022-11-28] MEDS: HYDROcodone/acetaminophen (*CRX) 5-325 MG TABLET 1 TAB PO ×2 (03:30→20:21)
[2022-11-28 04:18] VITALS: BP 175/77; PULSE 99; RESP 16; TEMP 36.6; O2SAT 99
[2022-11-28 08:36] LABS: Glucose Point of Care 116 mg/dl (65-105)
[2022-11-28 08:50] LABS: Hematocrit 32.3 % (37.0-47.0); Hemoglobin 10.7 g/dL (12.0-15.0); Immature Platelet Fraction Pct 4.9 % (0.9-11.2); Mean Corpuscular HGB Conc 33.1 g/dl (32-36); Mean Corpuscular Volume 87.5 fl (80-100); Mean Platelet Volume 11.2 fl (7.4-10.4); Platelet Count Result 83 k/mm3 (150-375); Red Blood Count 3.69 M/mm3 (4.2-5.4); Red Cell Distribution Width 13.6 % (11.5-14.5)
[2022-11-28 09:30] VITALS: PULSE 93; RESP 16; O2SAT 98
[2022-11-28] MEDS: FAMOTIDINE 20 MG TABLET PO ×2 (09:31→20:21)
[2022-11-28] MEDS: APIXABAN 5 MG TABLET 10 MG PO ×2 (09:31→20:21)
[2022-11-28] MEDS: AZTREONAM 1 GM in SODIUM CHLORIDE 0.9% IV 50 ML 100 ML IVPB ×2 (09:32→20:22)
[2022-11-28] MEDS: LIDOCAINE 5% PATCH 1 PATCH TRANSDERM (09:32)
[2022-11-28 09:40] LABS: Alanine Aminotransferase 19 U/L (6-35); Albumin Level 2.6 g/dL (3.5-5.1); Alkaline Phosphatase 124 U/L (38-126); Anion Gap 4 mmol/L (8-16); Aspartate Amino Transferase 21 U/L (14-36); Bilirubin,Total 0.6 mg/dL (0.2-1.3); Blood Urea Nitrogen 33 mg/dL (7-17); Calcium 7.7 mg/dL (8.4-10.2); Carbon Dioxide 24 mmol/L (22-30); Chloride 109 mmol/L (98-107); Estimated CRCL calculation 49 ml/min; Estimated Glomerular Filt Rate 55; Glucose 117 mg/dL (65-110); Sodium 137 mmol/L (137-145)
[2022-11-28] MEDS: ACETAMINOPHEN 325 MG TABLET 650 MG PO (10:02)
[2022-11-28] MEDS: SODIUM CHLORIDE 0.9% IV 1,000 ML 100 ML IV CONT ×2 (10:03→20:21)
[2022-11-28 12:21] LABS: Glucose Point of Care 172 mg/dl (65-105)
--- NOTE | 2022-11-28 13:54 | PM.IMPN ---
Progress Note: A&P Assessment and Plan (1) Severe sepsis: Code(s): A41.9 - Sepsis, unspecified organism; R65.20 - Severe sepsis without septic shock Status: Acute Assessment and Plan: Due to UTI IV Aztreonam Blood culture and urine culture growing E coli (2) UTI (urinary tract infection): Qualifiers: Urinary tract infection type: site unspecified Hematuria presence: without hematuria Qualified Code(s): N39.0 - Urinary tract infection, site not specified Code(s): N39.0 - Urinary tract infection, site not specified Status: Acute Assessment and Plan: 11/28 Aztreonam Day 4 Blood &Urine culture growing sensitive E coli Await disposition per care coordination (3) Acute renal failure: Qualifiers: Acute renal failure type: unspecified Qualified Code(s): N17.9 - Acute kidney failure, unspecified Code(s): N17.9 - Acute kidney failure, unspecified Status: Acute Assessment and Plan: Creatinine improved to 1.8 on 11/26, 11/28 1.0, so stopped IVF and encouraged PO intake Renal ultrasound normal (4) Diabetes: Code(s): E11.9 - Type 2 diabetes mellitus without complications Status: Acute Assessment and Plan: insulin sliding scale 11/27 FBS 101, 11/28 116 (5) Acute metabolic encephalopathy: Code(s): G93.41 - Metabolic encephalopathy Status: Acute Assessment and Plan: most likely related to severe sepsis CT head unremarkable Eeg confirms metabolic encephalopathy 11/27 seemed to be close to baseline, may have underlying early dementia (6) DVT (deep venous thrombosis): Code(s): I82.409 - Acute embolism and thrombosis of unspecified deep veins of unspecified lower extremity Status: Acute Assessment and Plan: ?Deep venous thrombosis from the distal superficial femoral vein to the posterior tibial and peroneal veins, likely subacute or chronic received Lovenox Continue Eliquis (7) Neck pain: Code(s): M54.2 - Cervicalgia Status: Acute Assessment and Plan: Tender posterior paracervical and upper trapezii Clinically musculoskeletal pain Improving with heat, PT, Tylenol (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 Ruvalcaba, Dr. Darnell were her oncologists per hx from pt) 11/27 WBC WNL with platelets 55k (stable from 11/26), 11/28 plt 83K Subjective Date/time seen: 11/28/22 13:54 Interval history: Posterior neck feeling much better today. Headache doing better. Taking only Tylenol and using the heating pad. Able to get up in the chair with physical therapy and with [facility]. Able to move neck more. Eating better when family brought food in from home. Does not like the food here. Less confused today. Denied chest pain or shortness of breath GI or issues. Denied focal weakness or numbness. Denied abnormal bleeding. Review of Systems Review of Systems: All systems reviewed & are unremarkable except as noted in HPI and below Exam Narrative: GENERAL: Well appearing, well-nourished, non-toxic, in no acute distress. HEAD: Normocephalic, atraumatic. NECK: Supple. No adenopathy, no masses. RESPIRATORY: Airway patent, respirations nonlabored. Clear to auscultation bilaterally, no rales, rhonchi, wheezing. CARDIOVASCULAR: Regular rate and rhythm without murmurs, rubs, or gallops. Peripheral pulses 2+ and equal bilaterally. ABDOMINAL: Soft, nontender, nondistended, no hepatosplenomegaly. Normoactive BS. MUSCULOSKELETAL: Tender posterior neck, upper borders of trapezii bilaterally SKIN: Warm, dry, normal color. No rashes. NEURO: CN symmetric to inspection, tone and strength in UE & LE bilaterally PSYCHIATRIC: Appropriate mood and affect. Normal interaction. Oriented to person, place, year (thought
[2022-11-28 14:06] VITALS: BP 128/69; PULSE 93; RESP 16; TEMP 37; O2SAT 98
[2022-11-28 17:30] LABS: Glucose Point of Care 150 mg/dl (65-105)
[2022-11-28] MEDS: POTASSIUM CHLORIDE 20 MEQ TABLET 40 MEQ PO (18:17)
[2022-11-28 19:50] VITALS: BP 146/59; PULSE 96; RESP 18; TEMP 36.6; O2SAT 100
[2022-11-28] MEDS: INSULIN ASPART (*BKC) 100 UNITS/ML SUB-Q (20:23)
[2022-11-28 20:46] LABS: Glucose Point of Care 229 mg/dl (65-105)
[2022-11-29 04:14] VITALS: BP 152/69; PULSE 90; RESP 16; TEMP 36.8; O2SAT 100
[2022-11-29] MEDS: SODIUM CHLORIDE 0.9% IV 1,000 ML 100 ML IV CONT (04:49)
[2022-11-29] MEDS: HYDROcodone/acetaminophen (*CRX) 5-325 MG TABLET 1 TAB PO ×3 (04:50→21:29)
[2022-11-29 05:51] LABS: Hematocrit 33.8 % (37.0-47.0); Hemoglobin 11.1 g/dL (12.0-15.0); Immature Platelet Fraction Pct 5.7 % (0.9-11.2); Mean Corpuscular HGB Conc 32.8 g/dl (32-36); Mean Corpuscular Hemoglobin 28.7 pg (26-34); Mean Corpuscular Volume 87.3 fl (80-100); Mean Platelet Volume 10.8 fl (7.4-10.4); Platelet Count Result 105 k/mm3 (150-375); Red Blood Count 3.87 M/mm3 (4.2-5.4); Red Cell Distribution Width 13.6 % (11.5-14.5); White Blood Count 11.5 K/mm3 (4.5-10.0)
[2022-11-29 06:20] LABS: Alanine Aminotransferase 27 U/L (6-35); Albumin Level 2.6 g/dL (3.5-5.1); Alkaline Phosphatase 173 U/L (38-126); Anion Gap 3 mmol/L (8-16); Aspartate Amino Transferase 35 U/L (14-36); Bilirubin,Total 0.6 mg/dL (0.2-1.3); Blood Urea Nitrogen 27 mg/dL (7-17); Calcium 7.4 mg/dL (8.4-10.2); Carbon Dioxide 25 mmol/L (22-30); Chloride 110 mmol/L (98-107); Estimated CRCL calculation 54 ml/min; Estimated Glomerular Filt Rate > 60; Glucose 156 mg/dL (65-110); Potassium 3.3 mmol/L (3.4-5.0); Sodium 138 mmol/L (137-145)
[2022-11-29] MEDS: AZTREONAM 1 GM in SODIUM CHLORIDE 0.9% IV 50 ML 100 ML IVPB (08:21)
[2022-11-29] MEDS: POTASSIUM CHLORIDE 20 MEQ PACKET (FOR LIQUID) 40 MEQ PO (08:21)
[2022-11-29] MEDS: FAMOTIDINE 20 MG TABLET PO ×2 (08:22→21:29)
[2022-11-29] MEDS: APIXABAN 5 MG TABLET 10 MG PO ×2 (08:22→21:28)
[2022-11-29] MEDS: LIDOCAINE 5% PATCH 1 PATCH TRANSDERM (08:23)
[2022-11-29 08:25] VITALS: PULSE 91; RESP 16; O2SAT 97
[2022-11-29 08:26] LABS: Glucose Point of Care 150 mg/dl (65-105)
[2022-11-29] MEDS: ACETAMINOPHEN 325 MG TABLET 650 MG PO (08:29)
[2022-11-29 09:38] VITALS: O2SAT 96
[2022-11-29 12:03] LABS: Glucose Point of Care 155 mg/dl (65-105)
--- NOTE | 2022-11-29 12:33 | P.PNIM_ITS ---
Progress Note: A&P Assessment and Plan (1) Severe sepsis: Code(s): A41.9 - Sepsis, unspecified organism; R65.20 - Severe sepsis without septic shock Status: Resolved Assessment and Plan: * Due to UTI * Blood culture and urine culture growing E coli (2) UTI (urinary tract infection): Qualifiers: Urinary tract infection type: site unspecified Hematuria presence: without hematuria Qualified Code(s): N39.0 - Urinary tract infection, site not specified Code(s): N39.0 - Urinary tract infection, site not specified Status: Acute Assessment and Plan: * 11/29 Aztreonam transition to p.o. Levaquin for total of 5 days. * Blood & Urine culture growing sensitive E coli * Await disposition per care coordination, patient needed placement (3) Acute renal failure: Qualifiers: Acute renal failure type: unspecified Qualified Code(s): N17.9 - Acute kidney failure, unspecified Code(s): N17.9 - Acute kidney failure, unspecified Status: Resolved Assessment and Plan: * Creatinine back to baseline * Renal ultrasound normal (4) Diabetes: Code(s): E11.9 - Type 2 diabetes mellitus without complications Status: Acute Assessment and Plan: insulin sliding scale 11/27 FBS 101, 11/28 116 (5) Acute metabolic encephalopathy: Code(s): G93.41 - Metabolic encephalopathy Status: Acute Assessment and Plan: * most likely related to severe sepsis * CT head unremarkable * Eeg confirms metabolic encephalopathy * 11/27 seemed to be close to baseline, may have underlying early dementia (6) DVT (deep venous thrombosis): Code(s): I82.409 - Acute embolism and thrombosis of unspecified deep veins of unspecified lower extremity Status: Acute Assessment and Plan: * DVT from the distal superficial femoral vein to the posterior sikhism and peroneal veins, likely subacute or chronic * Patient received Lovenox in the ED the Eliquis was started. 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 Ruvalcaba, Dr. Darnell were her oncologists per hx from pt) 11/27 WBC WNL with platelets 55k (stable from 11/26), 11/28 plt 83K Subjective Date/time seen: 11/29/22 12:33 Interval history: Patient doing well today with no new complaints. Pt is awaiting placement. Review of Systems Review of Systems: All systems reviewed & are unremarkable except as noted in HPI and below Exam Narrative: GENERAL: Comfortable, no acute distress HENMT: moist mucous membranes EYES: EOM intact b/l NECK: no lymphadenopathy RESPIRATORY: clear to auscultation CARDIO: RRR GI: soft, nontender, bowel sounds present SKIN: no rashes EXTREMITIES: no edema, redness or tenderness Objective Data Vital Signs Vital Signs: Vital Signs - 24 hr 11/28/22 14:06 11/28/22 19:50 11/02
--- NOTE | 2022-11-29 12:33 | PM.IMPN ---
Progress Note: A&P Assessment and Plan (1) Severe sepsis: Code(s): A41.9 - Sepsis, unspecified organism; R65.20 - Severe sepsis without septic shock Status: Resolved Assessment and Plan: Due to UTI Blood culture and urine culture growing E coli (2) UTI (urinary tract infection): Qualifiers: Urinary tract infection type: site unspecified Hematuria presence: without hematuria Qualified Code(s): N39.0 - Urinary tract infection, site not specified Code(s): N39.0 - Urinary tract infection, site not specified Status: Acute Assessment and Plan: 11/29 Aztreonam transition to p.o. Levaquin for total of 5 days. Blood & Urine culture growing sensitive E coli Await disposition per care coordination, patient needed placement (3) Acute renal failure: Qualifiers: Acute renal failure type: unspecified Qualified Code(s): N17.9 - Acute kidney failure, unspecified Code(s): N17.9 - Acute kidney failure, unspecified Status: Resolved Assessment and Plan: Creatinine back to baseline Renal ultrasound normal (4) Diabetes: Code(s): E11.9 - Type 2 diabetes mellitus without complications Status: Acute Assessment and Plan: insulin sliding scale 11/27 FBS 101, 11/28 116 (5) Acute metabolic encephalopathy: Code(s): G93.41 - Metabolic encephalopathy Status: Acute Assessment and Plan: most likely related to severe sepsis CT head unremarkable Eeg confirms metabolic encephalopathy 11/27 seemed to be close to baseline, may have underlying early dementia (6) DVT (deep venous thrombosis): Code(s): I82.409 - Acute embolism and thrombosis of unspecified deep veins of unspecified lower extremity Status: Acute Assessment and Plan: DVT from the distal superficial femoral vein to the posterior roman catholic and peroneal veins, likely subacute or chronic Patient received Lovenox in the ED the Eliquis was started. 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 Ruvalcaba, Dr. Darnell were her oncologists per hx from pt) 11/27 WBC WNL with platelets 55k (stable from 11/26), 11/28 plt 83K Subjective Date/time seen: 11/29/22 12:33 Interval history: Patient doing well today with no new complaints. Pt is awaiting placement. Review of Systems Review of Systems: All systems reviewed & are unremarkable except as noted in HPI and below Exam Narrative: GENERAL: Comfortable, no acute distress HENMT: moist mucous membranes EYES: EOM intact b/l NECK: no lymphadenopathy RESPIRATORY: clear to auscultation CARDIO: RRR GI: soft, nontender, bowel sounds present SKIN: no rashes EXTREMITIES: no edema, redness or tenderness Objective Data Vital Signs Vital Signs: Vital Signs - 24 hr 11/28/22 14:06 11/28/22 19:50 11/28/22 20:00 Temperature 98.6 F 97.9 F Pulse Rate 93 96 Respiratory Rate 16 18 Blood Pressure 128/69 146/59 H Pulse Oximetry 98 100 Oxygen Delivery Room Air 11/29/22 04:14 11/29/22 09:38 Temperature 98.2 F Pulse Rate 90 Respiratory Rate 16 Blood Pressure 152/69 H Pulse Oximetry 100 96 Oxygen Delivery Room Air Intake/Output Intake/Output: Intake & Output 11/26/22 11/27/22 11/28/22 11/29/22 23:59 23:59 23:59 23:59 Intake Total 3650 4600 3480 1340 Output Total 1785 2040 2100 1400 Balance 1865 2560 1380 -60 Meds/Results Medications: Active Medications Generic Name Dose Route Start Last Admin Trade
[2022-11-29] MEDS: levoFLOXacin 750 MG TABLET PO (13:55)
[2022-11-29 14:00] VITALS: BP 155/86; PULSE 91; RESP 16; TEMP 36.9; O2SAT 97
[2022-11-29 17:18] LABS: Glucose Point of Care 154 mg/dl (65-105)
[2022-11-29 20:45] VITALS: BP 150/67; PULSE 96; RESP 18; TEMP 36.6; O2SAT 100
[2022-11-29 21:55] LABS: Glucose Point of Care 164 mg/dl (65-105)
[2022-11-30 04:29] VITALS: BP 154/57; PULSE 86; RESP 18; TEMP 36.6; O2SAT 99
[2022-11-30] MEDS: HYDROcodone/acetaminophen (*CRX) 5-325 MG TABLET 1 TAB PO ×3 (05:43→20:53)
[2022-11-30 05:53] LABS: Hematocrit 32.9 % (37.0-47.0); Mean Corpuscular HGB Conc 33.4 g/dl (32-36); Mean Corpuscular Hemoglobin 29.2 pg (26-34); Mean Corpuscular Volume 87.3 fl (80-100); Mean Platelet Volume 10.9 fl (7.4-10.4); Platelet Count Result 140 k/mm3 (150-375); Red Blood Count 3.77 M/mm3 (4.2-5.4); Red Cell Distribution Width 13.7 % (11.5-14.5); White Blood Count 10.8 K/mm3 (4.5-10.0)
[2022-11-30 06:01] LABS: Alanine Aminotransferase 27 U/L (6-35); Albumin Level 2.7 g/dL (3.5-5.1); Alkaline Phosphatase 159 U/L (38-126); Anion Gap 4 mmol/L (8-16); Aspartate Amino Transferase 32 U/L (14-36); Bilirubin,Total 0.6 mg/dL (0.2-1.3); Blood Urea Nitrogen 18 mg/dL (7-17); Calcium 7.8 mg/dL (8.4-10.2); Carbon Dioxide 27 mmol/L (22-30); Chloride 106 mmol/L (98-107); Estimated CRCL calculation 53 ml/min; Estimated Glomerular Filt Rate > 60; Glucose 151 mg/dL (65-110); Potassium 3.6 mmol/L (3.4-5.0); Sodium 137 mmol/L (137-145)
[2022-11-30 06:44] LABS: Band Neutrophils Percent 7 % (0-6); Lymphocytes Absolute Manual 1.62 K/mm3 (1.1-4.5); Lymphocytes Percent Manual 15 % (18-44); Monocytes Absolute Manual 0.86 K/mm3 (0.1-0.90); Monocytes Percent Manual 8 % (3-9); Neutrophils Absolute Manual 8.31 K/mm3 (1.7-7.2); Neutrophils Percent Manual 70 % (46-73); Platelet Estimate Adequate (Adequate); Schistocytes None Seen (NORMAL); Total Cells Counted 100
[2022-11-30 08:49] LABS: Glucose Point of Care 144 mg/dl (65-105)
[2022-11-30] MEDS: FAMOTIDINE 20 MG TABLET PO ×2 (08:52→20:54)
[2022-11-30] MEDS: APIXABAN 5 MG TABLET 10 MG PO ×2 (08:52→20:53)
[2022-11-30] MEDS: LIDOCAINE 5% PATCH 1 PATCH TRANSDERM (08:56)
[2022-11-30 09:25] VITALS: PULSE 86; RESP 18; O2SAT 99
[2022-11-30 11:59] LABS: Glucose Point of Care 171 mg/dl (65-105)
--- NOTE | 2022-11-30 13:44 | P.PNIM_ITS ---
Progress Note: A&P Assessment and Plan (1) Severe sepsis: Code(s): A41.9 - Sepsis, unspecified organism; R65.20 - Severe sepsis without septic shock Status: Resolved Assessment and Plan: * Due to UTI * Blood culture and urine culture growing E coli (2) UTI (urinary tract infection): Qualifiers: Urinary tract infection type: site unspecified Hematuria presence: without hematuria Qualified Code(s): N39.0 - Urinary tract infection, site not specified Code(s): N39.0 - Urinary tract infection, site not specified Status: Acute Assessment and Plan: * 11/29 Aztreonam transition to p.o. Levaquin for total of 5 days. * Blood & Urine culture growing sensitive E coli * Await disposition per care coordination, patient needed placement (3) Acute renal failure: Qualifiers: Acute renal failure type: unspecified Qualified Code(s): N17.9 - Acute kidney failure, unspecified Code(s): N17.9 - Acute kidney failure, unspecified Status: Resolved Assessment and Plan: * Creatinine back to baseline * Renal ultrasound normal (4) Diabetes: Code(s): E11.9 - Type 2 diabetes mellitus without complications Status: Acute Assessment and Plan: insulin sliding scale 11/27 FBS 101, 11/28 116 (5) Acute metabolic encephalopathy: Code(s): G93.41 - Metabolic encephalopathy Status: Acute Assessment and Plan: * most likely related to severe sepsis * CT head unremarkable * Eeg confirms metabolic encephalopathy * 11/27 seemed to be close to baseline, may have underlying early dementia (6) DVT (deep venous thrombosis): Code(s): I82.409 - Acute embolism and thrombosis of unspecified deep veins of unspecified lower extremity Status: Acute Assessment and Plan: * DVT from the distal superficial femoral vein to the posterior buddhist and peroneal veins, likely subacute or chronic * Patient received Lovenox in the ED the Eliquis was started. 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 Ruvalcaba, Dr. Darnell were her oncologists per hx from pt) 11/27 WBC WNL with platelets 55k (stable from 11/26), 11/28 plt 83K Subjective Date/time seen: 11/30/22 13:44 Interval history: Patient doing well today with no new complaints. Pt is awaiting placement. Review of Systems Review of Systems: All systems reviewed & are unremarkable except as noted in HPI and below Exam Narrative: GENERAL: Comfortable, no acute distress HENMT: moist mucous membranes EYES: EOM intact b/l NECK: no lymphadenopathy RESPIRATORY: clear to auscultation CARDIO: RRR GI: soft, nontender, bowel sounds present SKIN: no rashes EXTREMITIES: no edema, redness or tenderness Objective Data Vital Signs Vital Signs: Vital Signs - 24 hr 11/29/22 14:00 11/29/22 20:45 11/02
--- NOTE | 2022-11-30 13:44 | PM.IMPN ---
Progress Note: A&P Assessment and Plan (1) Severe sepsis: Code(s): A41.9 - Sepsis, unspecified organism; R65.20 - Severe sepsis without septic shock Status: Resolved Assessment and Plan: Due to UTI Blood culture and urine culture growing E coli (2) UTI (urinary tract infection): Qualifiers: Urinary tract infection type: site unspecified Hematuria presence: without hematuria Qualified Code(s): N39.0 - Urinary tract infection, site not specified Code(s): N39.0 - Urinary tract infection, site not specified Status: Acute Assessment and Plan: 11/29 Aztreonam transition to p.o. Levaquin for total of 5 days. Blood & Urine culture growing sensitive E coli Await disposition per care coordination, patient needed placement (3) Acute renal failure: Qualifiers: Acute renal failure type: unspecified Qualified Code(s): N17.9 - Acute kidney failure, unspecified Code(s): N17.9 - Acute kidney failure, unspecified Status: Resolved Assessment and Plan: Creatinine back to baseline Renal ultrasound normal (4) Diabetes: Code(s): E11.9 - Type 2 diabetes mellitus without complications Status: Acute Assessment and Plan: insulin sliding scale 11/27 FBS 101, 11/28 116 (5) Acute metabolic encephalopathy: Code(s): G93.41 - Metabolic encephalopathy Status: Acute Assessment and Plan: most likely related to severe sepsis CT head unremarkable Eeg confirms metabolic encephalopathy 11/27 seemed to be close to baseline, may have underlying early dementia (6) DVT (deep venous thrombosis): Code(s): I82.409 - Acute embolism and thrombosis of unspecified deep veins of unspecified lower extremity Status: Acute Assessment and Plan: DVT from the distal superficial femoral vein to the posterior uatsdin and peroneal veins, likely subacute or chronic Patient received Lovenox in the ED the Eliquis was started. 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 Ruvalcaba, Dr. Darnell were her oncologists per hx from pt) 11/27 WBC WNL with platelets 55k (stable from 11/26), 11/28 plt 83K Subjective Date/time seen: 11/30/22 13:44 Interval history: Patient doing well today with no new complaints. Pt is awaiting placement. Review of Systems Review of Systems: All systems reviewed & are unremarkable except as noted in HPI and below Exam Narrative: GENERAL: Comfortable, no acute distress HENMT: moist mucous membranes EYES: EOM intact b/l NECK: no lymphadenopathy RESPIRATORY: clear to auscultation CARDIO: RRR GI: soft, nontender, bowel sounds present SKIN: no rashes EXTREMITIES: no edema, redness or tenderness Objective Data Vital Signs Vital Signs: Vital Signs - 24 hr 11/29/22 14:00 11/29/22 20:45 11/29/22 20:00 Temperature 98.4 F 98 F Pulse Rate 91 96 Respiratory Rate 16 18 Blood Pressure 155/86 H 150/67 H Pulse Oximetry 97 100 Oxygen Delivery Room Air 11/30/22 04:29 11/30/22 09:25 Temperature 97.8 F Pulse Rate 86 86 Respiratory Rate 18 18 Blood Pressure 154/57 H Pulse Oximetry 99 99 Oxygen Delivery Room Air Intake/Output Intake/Output: Intake & Output 11/27/22 11/28/22 11/29/22 11/30/22 23:59 23:59 23:59 23:59 Intake Total 4600 3480 2200 670 Output Total 2040 2100 3000 2100 Balance 2560 1380 800 1430 Meds/Results Medications: Active Medications Generic Name Dose Route Start Last Admin T
[2022-11-30] MEDS: levoFLOXacin 750 MG TABLET PO (14:07)
[2022-11-30] MEDS: polyethylene glycoL 3350 17 GM POWD.PACK PO (14:08)
[2022-11-30 14:58] VITALS: BP 135/67; PULSE 103; RESP 18; TEMP 36.7; O2SAT 100
[2022-11-30 17:13] LABS: Glucose Point of Care 160 mg/dl (65-105)
[2022-11-30 20:24] VITALS: BP 159/88; PULSE 99; RESP 20; TEMP 37; O2SAT 99
[2022-11-30 21:48] LABS: Glucose Point of Care 148 mg/dl (65-105)
[2022-12-01 04:36] VITALS: BP 146/62; PULSE 100; RESP 18; TEMP 37.1; O2SAT 98
[2022-12-01 05:47] LABS: Basophils Percent Auto 0.2 % (0.2-1.2); Eosinophils Absolute Auto 0.1 K/mm3 (0-0.3); Eosinophils Percent Auto 0.5 % (0-4.4); Hematocrit 31.7 % (37.0-47.0); Hemoglobin 10.7 g/dL (12.0-15.0); Immature Granulocyte Absolute 0.59 K/mm3 (0.00-0.031); Immature Granulocyte Percent A 4.9 % (0-0.5); Lymphocytes Absolute Auto 0.99 K/mm3 (0.9-3.2); Lymphocytes Percent Auto 8.2 % (18.3-44.2); Mean Corpuscular HGB Conc 33.8 g/dl (32-36); Mean Corpuscular Hemoglobin 29.5 pg (26-34); Mean Corpuscular Volume 87.3 fl (80-100); Monocytes Percent Auto 8.3 % (2.6-8.5); Neutrophils Absolute Auto 9.4 K/mm3 (1.3-6.7); Neutrophils Percent Auto 77.9 % (45.5-73.1); Platelet Count Result 184 k/mm3 (150-375); Red Blood Count 3.63 M/mm3 (4.2-5.4); Red Cell Distribution Width 13.5 % (11.5-14.5)
[2022-12-01 06:07] LABS: Alanine Aminotransferase 24 U/L (6-35); Albumin Level 2.8 g/dL (3.5-5.1); Alkaline Phosphatase 141 U/L (38-126); Anion Gap 5 mmol/L (8-16); Aspartate Amino Transferase 29 U/L (14-36); Bilirubin,Total 0.7 mg/dL (0.2-1.3); Blood Urea Nitrogen 21 mg/dL (7-17); Calcium 7.7 mg/dL (8.4-10.2); Carbon Dioxide 28 mmol/L (22-30); Chloride 102 mmol/L (98-107); Estimated CRCL calculation 40 ml/min; Estimated Glomerular Filt Rate 45; Glucose 169 mg/dL (65-110); Potassium 3.6 mmol/L (3.4-5.0); Sodium 135 mmol/L (137-145)
[2022-12-01 08:20] LABS: Glucose Point of Care 174 mg/dl (65-105)
[2022-12-01] MEDS: HYDROcodone/acetaminophen (*CRX) 5-325 MG TABLET 1 TAB PO (08:41)
[2022-12-01] MEDS: polyethylene glycoL 3350 17 GM POWD.PACK PO (08:43)
[2022-12-01] MEDS: APIXABAN 5 MG TABLET 10 MG PO ×2 (08:43→20:54)
[2022-12-01] MEDS: FAMOTIDINE 20 MG TABLET PO ×2 (08:43→20:54)
[2022-12-01 08:45] VITALS: PULSE 100; RESP 18; O2SAT 98
[2022-12-01] MEDS: LIDOCAINE 5% PATCH 1 PATCH TRANSDERM (08:46)
[2022-12-01 10:58] VITALS: BMI 30.9
[2022-12-01 12:03] LABS: Procalcitonin 2.6 ng/mL
[2022-12-01 12:39] LABS: Glucose Point of Care 184 mg/dl (65-105)
[2022-12-01] MEDS: levoFLOXacin 750 MG TABLET PO (13:29)
[2022-12-01 14:46] VITALS: BP 115/58; PULSE 106; RESP 17; TEMP 36.8; O2SAT 99
[2022-12-01 16:28] LABS: Folic Acid 7.7 ng/mL (2.76->20)
[2022-12-01 17:16] LABS: Glucose Point of Care 126 mg/dl (65-105)
[2022-12-01 20:32] LABS: Glucose Point of Care 123 mg/dl (65-105)
[2022-12-01 20:37] VITALS: BP 152/64; PULSE 102; RESP 18; TEMP 36.8; O2SAT 100
--- NOTE | 2022-12-01 20:44 | P.PNIM_ITS ---
Progress Note: A&P Assessment and Plan (1) Severe sepsis: Code(s): A41.9 - Sepsis, unspecified organism; R65.20 - Severe sepsis without septic shock Status: Resolved Assessment and Plan: Secondary to UTI * Blood culture and urine culture growing E coli pansensitive. * Hemodynamically stable. * Continue antibiotics x 10-14 days total for bacteremia from negative blood cultures. (2) UTI (urinary tract infection): Qualifiers: Hematuria presence: without hematuria Urinary tract infection type: site unspecified Qualified Code(s): N39.0 - Urinary tract infection, site not specified Code(s): N39.0 - Urinary tract infection, site not specified Status: Acute Assessment and Plan: UA concerning for infection on admission. * Treated with 11/29 Aztreonam 11/24-11/29/22, transition to p.o. Levaquin on 11/29- current for total of 5 additional days. * Blood & Urine culture growing sensitive E coli * Monitor urine outpatient and temperature curve. (3) Bacteremia due to Escherichia coli: Code(s): R78.81 - Bacteremia; B96.20 - Unspecified Escherichia coli [E. coli] as the cause of diseases classified elsewhere Status: Acute Assessment and Plan: Secondary to UTI. E.coli growth in both bottles drawn 11/24/22. * Repeat blood cultures 12/01/22 for clearance. (4) Acute renal failure: Qualifiers: Acute renal failure type: unspecified Qualified Code(s): N17.9 - Acute kidney failure, unspecified Code(s): N17.9 - Acute kidney failure, unspecified Status: Resolved Assessment and Plan: * Creatinine back to baseline * Renal ultrasound normal * Likely secondary to acute infection. (5) Diabetes: Code(s): E11.9 - Type 2 diabetes mellitus without complications Status: Chronic Assessment and Plan: Chronic, noninsulin dependent diabetes. * Hold metformin and Tradjenta inpatient. * Accu-checks AC/HS with meal/HS insulin sliding scale * Hypoglycemia protocol * goal glucose <180 mg/dL while inpatient (6) Acute metabolic encephalopathy: Code(s): G93.41 - Metabolic encephalopathy Status: Acute Assessment and Plan: * most likely related to severe sepsis, but may have underlying dementia. * CT head unremarkable * EEG abnormal and suggestive of metabolic encephalopathy * Continue antibiotics as above. * Check B12, folate and TSH (7) DVT (deep venous thrombosis): Qualifiers: DVT location: lower extremity Affected thrombotic vein of extremity: femoral Chronicity: acute Laterality: left Qualified Code(s): I82.412 - Acute embolism and thrombosis of left femoral vein Code(s): I82.409 - Acute embolism and thrombosis of unspecified deep veins of unspecified lower extremity Status: Acute Assessment and Plan: * DVT from the distal superficial femoral vein to the posterior tibila and peroneal veins, subacute or chronic * Patient received Lovenox in the ED and then Eliquis was started. * Continue anticoagulation. (8) Neck pain: Code(s): M54.2 - Cervicalgia Status: Acute Assessment and Plan: * Tender posterior paracervical and upper trapezius * Appears to be musculoskeletal pain * Continue supportive care heating pad, lidoderm patch, physical therapy and PRN Tylenol (9) Acute myeloid leukemia: Code(s): C92.00 - Acute myeloblastic leukemia, not having achieved remission Status: Chronic
--- NOTE | 2022-12-01 20:44 | PM.IMPN ---
Progress Note: A&P Assessment and Plan (1) Severe sepsis: Code(s): A41.9 - Sepsis, unspecified organism; R65.20 - Severe sepsis without septic shock Status: Resolved Assessment and Plan: Secondary to UTI Blood culture and urine culture growing E coli pansensitive. Hemodynamically stable. Continue antibiotics x 10-14 days total for bacteremia from negative blood cultures. (2) UTI (urinary tract infection): Qualifiers: Hematuria presence: without hematuria Urinary tract infection type: site unspecified Qualified Code(s): N39.0 - Urinary tract infection, site not specified Code(s): N39.0 - Urinary tract infection, site not specified Status: Acute Assessment and Plan: UA concerning for infection on admission. Treated with 11/29 Aztreonam 11/24-11/29/22, transition to p.o. Levaquin on 11/29- current for total of 5 additional days. Blood & Urine culture growing sensitive E coli Monitor urine outpatient and temperature curve. (3) Bacteremia due to Escherichia coli: Code(s): R78.81 - Bacteremia; B96.20 - Unspecified Escherichia coli [E. coli] as the cause of diseases classified elsewhere Status: Acute Assessment and Plan: Secondary to UTI. E.coli growth in both bottles drawn 11/24/22. Repeat blood cultures 12/01/22 for clearance. (4) Acute renal failure: Qualifiers: Acute renal failure type: unspecified Qualified Code(s): N17.9 - Acute kidney failure, unspecified Code(s): N17.9 - Acute kidney failure, unspecified Status: Resolved Assessment and Plan: Creatinine back to baseline Renal ultrasound normal Likely secondary to acute infection. (5) Diabetes: Code(s): E11.9 - Type 2 diabetes mellitus without complications Status: Chronic Assessment and Plan: Chronic, noninsulin dependent diabetes. Hold metformin and Tradjenta inpatient. Accu-checks AC/HS with meal/HS insulin sliding scale Hypoglycemia protocol goal glucose <180 mg/dL while inpatient (6) Acute metabolic encephalopathy: Code(s): G93.41 - Metabolic encephalopathy Status: Acute Assessment and Plan: most likely related to severe sepsis, but may have underlying dementia. CT head unremarkable EEG abnormal and suggestive of metabolic encephalopathy Continue antibiotics as above. Check B12, folate and TSH (7) DVT (deep venous thrombosis): Qualifiers: DVT location: lower extremity Affected thrombotic vein of extremity: femoral Chronicity: acute Laterality: left Qualified Code(s): I82.412 - Acute embolism and thrombosis of left femoral vein Code(s): I82.409 - Acute embolism and thrombosis of unspecified deep veins of unspecified lower extremity Status: Acute Assessment and Plan: DVT from the distal superficial femoral vein to the posterior tibila and peroneal veins, subacute or chronic Patient received Lovenox in the ED and then Eliquis was started. Continue anticoagulation. 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 Ruvalcaba, Dr. Darnell were her oncologists per hx from pt) 11/27 WBC WNL with platelets 55k (stable from 11/26), 11/28 plt 83K Plan code status: full code discharge disposition: pending placement Antibiotic: day 7 . Diet: Regular diet with glucerna BID Time Spent With Patient Time with patient: 25 - 35 minutes Subjective Date/time seen: 12/01
[2022-12-02 05:31] VITALS: BP 139/52; PULSE 99; RESP 16; TEMP 36.8; O2SAT 99
[2022-12-02 06:07] LABS: Basophils Percent Auto 0.3 % (0.2-1.2); Eosinophils Absolute Auto 0.1 K/mm3 (0-0.3); Eosinophils Percent Auto 0.5 % (0-4.4); Hemoglobin 9.9 g/dL (12.0-15.0); Immature Granulocyte Percent A 4.8 % (0-0.5); Lymphocytes Absolute Auto 0.77 K/mm3 (0.9-3.2); Lymphocytes Percent Auto 7.4 % (18.3-44.2); Mean Corpuscular Hemoglobin 28.8 pg (26-34); Mean Corpuscular Volume 87.2 fl (80-100); Mean Platelet Volume 11.2 fl (7.4-10.4); Monocytes Absolute Auto 0.8 K/mm3 (0.1-0.6); Neutrophils Absolute Auto 8.3 K/mm3 (1.3-6.7); Platelet Count Result 258 k/mm3 (150-375); Red Blood Count 3.44 M/mm3 (4.2-5.4); Red Cell Distribution Width 13.8 % (11.5-14.5); White Blood Count 10.5 K/mm3 (4.5-10.0)
[2022-12-02 06:18] LABS: Alanine Aminotransferase 22 U/L (6-35); Albumin Level 2.9 g/dL (3.5-5.1); Alkaline Phosphatase 106 U/L (38-126); Anion Gap 4 mmol/L (8-16); Aspartate Amino Transferase 27 U/L (14-36); Bilirubin,Total 0.6 mg/dL (0.2-1.3); Blood Urea Nitrogen 22 mg/dL (7-17); CRP 7.7 mg/dL (<1.0); Calcium 7.6 mg/dL (8.4-10.2); Carbon Dioxide 31 mmol/L (22-30); Chloride 101 mmol/L (98-107); Estimated CRCL calculation 30 ml/min; Estimated Glomerular Filt Rate 32; Glucose 150 mg/dL (65-110); Potassium 3.8 mmol/L (3.4-5.0); Sodium 136 mmol/L (137-145)
[2022-12-02 06:44] LABS: Procalcitonin 1.6 ng/mL
[2022-12-02 08:00] VITALS: O2SAT 99
[2022-12-02 08:25] LABS: Glucose Point of Care 191 mg/dl (65-105)
[2022-12-02] MEDS: LIDOCAINE 5% PATCH 1 PATCH TRANSDERM (08:38)
[2022-12-02] MEDS: FAMOTIDINE 20 MG TABLET PO ×2 (08:38→21:06)
--- NOTE | 2022-12-02 09:43 | P.PNIM_ITS ---
Progress Note: A&P Assessment and Plan (1) Severe sepsis: Code(s): A41.9 - Sepsis, unspecified organism; R65.20 - Severe sepsis without septic shock Status: Resolved Assessment and Plan: Secondary to UTI * Blood culture and urine culture growing E coli pansensitive. * Hemodynamically stable. * Continue antibiotics x 10-14 days total for bacteremia from negative blood cultures. * 12/01/22 repeat blood cultures negative to date. (2) UTI (urinary tract infection): Qualifiers: Hematuria presence: without hematuria Urinary tract infection type: site unspecified Qualified Code(s): N39.0 - Urinary tract infection, site not specified Code(s): N39.0 - Urinary tract infection, site not specified Status: Acute Assessment and Plan: UA concerning for infection on admission. * Treated with 11/29 Aztreonam 11/24-11/29/22, transition to p.o. Levaquin on 11/29- current for total of 5 additional days. * Blood & Urine culture growing sensitive E coli * Monitor urine outpatient and temperature curve. (3) Bacteremia due to Escherichia coli: Code(s): R78.81 - Bacteremia; B96.20 - Unspecified Escherichia coli [E. coli] as the cause of diseases classified elsewhere Status: Acute Assessment and Plan: Secondary to UTI. E.coli growth in both bottles drawn 11/24/22. * Repeat blood cultures 12/01/22 for clearance- negative to date. (4) Acute renal failure: Qualifiers: Acute renal failure type: unspecified Qualified Code(s): N17.9 - Acute kidney failure, unspecified Code(s): N17.9 - Acute kidney failure, unspecified Status: Resolved Assessment and Plan: BUN and creatinine elevated on admission. Likely secondary to acute infection. * Renal ultrasound normal * 12/02/22 BUN 22, creatinine 1.6, GFR 32 and trending up. Patient had normal creatinine 11/28-11/30 after receiving IV fluids. * Push oral fluids * Start NS@100 mL/hour and repeat BMP in am. * Adjust Levaquin dose to Q48 hours given decreased CrCl (5) Diabetes: Code(s): E11.9 - Type 2 diabetes mellitus without complications Status: Chronic Assessment and Plan: Chronic, noninsulin dependent diabetes. * Hold metformin and Tradjenta inpatient. * Accu-checks AC/HS with meal/HS insulin sliding scale * Hypoglycemia protocol * goal glucose <180 mg/dL while inpatient (6) Acute metabolic encephalopathy: Code(s): G93.41 - Metabolic encephalopathy Status: Acute Assessment and Plan: * most likely related to severe sepsis, but may have underlying dementia. * CT head unremarkable * EEG abnormal and suggestive of metabolic encephalopathy * Continue antibiotics as above. * B12, folate and TSH all within normal limits. (7) DVT (deep venous thrombosis): Qualifiers: Affected thrombotic vein of extremity: femoral Chronicity: acute DVT location: lower extremity Laterality: left Qualified Code(s): I82.412 - Acute embolism and thrombosis of left femoral vein Code(s): I82.409 - Acute embolism and thrombosis of unspecified deep veins of unspecified lower extremity Status: Acute Assessment and Plan: * DVT from the distal superficial femoral vein to the posterior tibila and peroneal veins, subacute or chronic * Patient received Lovenox in the ED and then Eliquis was started. * Continue anticoagulation. (8) Neck pain: Code(s): M54.2 - Cervicalgia Status: Acute Assessment and Plan: * Tender post
--- NOTE | 2022-12-02 09:43 | PM.IMPN ---
Progress Note: A&P Assessment and Plan (1) Severe sepsis: Code(s): A41.9 - Sepsis, unspecified organism; R65.20 - Severe sepsis without septic shock Status: Resolved Assessment and Plan: Secondary to UTI Blood culture and urine culture growing E coli pansensitive. Hemodynamically stable. Continue antibiotics x 10-14 days total for bacteremia from negative blood cultures. 12/01/22 repeat blood cultures negative to date. (2) UTI (urinary tract infection): Qualifiers: Hematuria presence: without hematuria Urinary tract infection type: site unspecified Qualified Code(s): N39.0 - Urinary tract infection, site not specified Code(s): N39.0 - Urinary tract infection, site not specified Status: Acute Assessment and Plan: UA concerning for infection on admission. Treated with 11/29 Aztreonam 11/24-11/29/22, transition to p.o. Levaquin on 11/29- current for total of 5 additional days. Blood & Urine culture growing sensitive E coli Monitor urine outpatient and temperature curve. (3) Bacteremia due to Escherichia coli: Code(s): R78.81 - Bacteremia; B96.20 - Unspecified Escherichia coli [E. coli] as the cause of diseases classified elsewhere Status: Acute Assessment and Plan: Secondary to UTI. E.coli growth in both bottles drawn 11/24/22. Repeat blood cultures 12/01/22 for clearance- negative to date. (4) Acute renal failure: Qualifiers: Acute renal failure type: unspecified Qualified Code(s): N17.9 - Acute kidney failure, unspecified Code(s): N17.9 - Acute kidney failure, unspecified Status: Resolved Assessment and Plan: BUN and creatinine elevated on admission. Likely secondary to acute infection. Renal ultrasound normal 12/02/22 BUN 22, creatinine 1.6, GFR 32 and trending up. Patient had normal creatinine 11/28-11/30 after receiving IV fluids. Push oral fluids Start NS@100 mL/hour and repeat BMP in am. Adjust Levaquin dose to Q48 hours given decreased CrCl (5) Diabetes: Code(s): E11.9 - Type 2 diabetes mellitus without complications Status: Chronic Assessment and Plan: Chronic, noninsulin dependent diabetes. Hold metformin and Tradjenta inpatient. Accu-checks AC/HS with meal/HS insulin sliding scale Hypoglycemia protocol goal glucose <180 mg/dL while inpatient (6) Acute metabolic encephalopathy: Code(s): G93.41 - Metabolic encephalopathy Status: Acute Assessment and Plan: most likely related to severe sepsis, but may have underlying dementia. CT head unremarkable EEG abnormal and suggestive of metabolic encephalopathy Continue antibiotics as above. B12, folate and TSH all within normal limits. (7) DVT (deep venous thrombosis): Qualifiers: Affected thrombotic vein of extremity: femoral Chronicity: acute DVT location: lower extremity Laterality: left Qualified Code(s): I82.412 - Acute embolism and thrombosis of left femoral vein Code(s): I82.409 - Acute embolism and thrombosis of unspecified deep veins of unspecified lower extremity Status: Acute Assessment and Plan: DVT from the distal superficial femoral vein to the posterior tibila and peroneal veins, subacute or chronic Patient received Lovenox in the ED and then Eliquis was started. Continue anticoagulation. 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 Ruvalcaba, Dr. Darnell were her oncolo
[2022-12-02] MEDS: SODIUM CHLORIDE 0.9% IV 1,000 ML 100 ML IV CONT ×2 (10:08→21:08)
[2022-12-02 12:17] LABS: Glucose Point of Care 142 mg/dl (65-105)
[2022-12-02 15:45] LABS: Albumin Level 3.2 g/dL (3.5-5.1); Anion Gap 5 mmol/L (8-16); Blood Urea Nitrogen 27 mg/dL (7-17); Calcium 7.7 mg/dL (8.4-10.2); Carbon Dioxide 31 mmol/L (22-30); Chloride 101 mmol/L (98-107); Estimated CRCL calculation 30 ml/min; Estimated Glomerular Filt Rate 32; Glucose 121 mg/dL (65-110); Phosphorus 4.1 mg/dL (2.5-4.5); Potassium 3.8 mmol/L (3.4-5.0); Sodium 137 mmol/L (137-145)
[2022-12-02 16:00] VITALS: BP 113/66; PULSE 106; RESP 18; TEMP 36.2; O2SAT 95
[2022-12-02] MEDS: HYDROcodone/acetaminophen (*CRX) 5-325 MG TABLET 1 TAB PO (16:35)
[2022-12-02 17:05] LABS: Glucose Point of Care 119 mg/dl (65-105)
[2022-12-02 21:36] LABS: Glucose Point of Care 127 mg/dl (65-105)
[2022-12-02 21:49] VITALS: BP 135/64; PULSE 105; RESP 18; TEMP 37.1; O2SAT 100
[2022-12-03] MEDS: HYDROcodone/acetaminophen (*CRX) 5-325 MG TABLET 1 TAB PO (05:50)
[2022-12-03] MEDS: SODIUM CHLORIDE 0.9% IV 1,000 ML 100 ML IV CONT (05:51)
[2022-12-03 06:22] VITALS: BP 158/75; PULSE 105; RESP 18; TEMP 37; O2SAT 100
[2022-12-03] MEDS: polyethylene glycoL 3350 17 GM POWD.PACK PO (08:20)
[2022-12-03] MEDS: levoFLOXacin 750 MG TABLET PO (08:20)
[2022-12-03] MEDS: FAMOTIDINE 20 MG TABLET PO (08:20)
[2022-12-03] MEDS: APIXABAN 5 MG TABLET PO (08:26)
[2022-12-03 08:33] LABS: Glucose Point of Care 154 mg/dl (65-105)
[2022-12-03 08:47] LABS: Albumin Level 3.1 g/dL (3.5-5.1); Anion Gap 7 mmol/L (8-16); Blood Urea Nitrogen 22 mg/dL (7-17); Calcium 7.5 mg/dL (8.4-10.2); Carbon Dioxide 27 mmol/L (22-30); Chloride 103 mmol/L (98-107); Estimated CRCL calculation 32 ml/min; Estimated Glomerular Filt Rate 35; Glucose 141 mg/dL (65-110); Phosphorus 3.6 mg/dL (2.5-4.5); Potassium 3.9 mmol/L (3.4-5.0); Sodium 137 mmol/L (137-145)
--- NOTE | 2022-12-03 09:33 | P.DS_ITS ---
DS: Admitting Diagnosis Discharge Date 12/03/2022 Admitting Diagnosis Severe sepsis without septic shock Urinary tract infection, site not specified Metabolic encephalopathy DVT (deep venous thrombosis) Acute kidney failure, unspecified DS: Discharge Diagnosis Discharge Diagnosis (1) Severe sepsis: Code(s): A41.9 - Sepsis, unspecified organism; R65.20 - Severe sepsis without septic shock Status: Resolved Assessment and Plan: Secondary to UTI * 11/24/22 Blood culture and urine culture growing E coli pansensitive. * Treated with IV fluids * Initiated on IV antibiotics, then transitioned to PO for 10-14 days total for bacteremia from negative blood cultures. * 12/01/22 repeat blood cultures negative to date. (2) UTI (urinary tract infection): Qualifiers: Hematuria presence: without hematuria Urinary tract infection type: site unspecified Qualified Code(s): N39.0 - Urinary tract infection, site not specified Code(s): N39.0 - Urinary tract infection, site not specified Status: Acute Assessment and Plan: UA concerning for infection on admission. * Treated with 11/29 Aztreonam 11/24-11/29/22, transition to p.o. Levaquin on 11/29- current for total of 5 additional days. * Blood & Urine culture growing sensitive E coli * Monitor urine outpatient and temperature curve. * 12/02/22 changed levaquin to Q48 hours due to renal function, continue until last dose 12/05/22 (3) Bacteremia due to Escherichia coli: Code(s): R78.81 - Bacteremia; B96.20 - Unspecified Escherichia coli [E. coli] as the cause of diseases classified elsewhere Status: Acute Assessment and Plan: Secondary to UTI. E.coli growth in both bottles drawn 11/24/22. * Repeat blood cultures 12/01/22 for clearance- negative to date. * Antibiotics as above. (4) Acute renal failure: Qualifiers: Acute renal failure type: unspecified Qualified Code(s): N17.9 - Acute kidney failure, unspecified Code(s): N17.9 - Acute kidney failure, unspecified Status: Resolved Assessment and Plan: BUN and creatinine elevated on admission. Likely secondary to acute infection. * Renal ultrasound normal * 12/02/22 BUN 22, creatinine 1.6, GFR 32 and trending up. Patient had normal creatinine 11/28-11/30 after receiving IV fluids. * Push oral fluids * 12/02/22 Started NS@100 mL/hour and repeat BMP in am. * Adjusted Levaquin dose to Q48 hours given decreased CrCl * 12/03/22 improved. (5) Diabetes: Code(s): E11.9 - Type 2 diabetes mellitus without complications Status: Chronic Assessment and Plan: Chronic, noninsulin dependent diabetes. * Held metformin and Tradjenta inpatient. * Accu-checks AC/HS with meal/HS insulin sliding scale * Hypoglycemia protocol * goal glucose <180 mg/dL while inpatient (6) Acute metabolic encephalopathy: Code(s): G93.41 - Metabolic encephalopathy Status: Acute Assessment and Plan: * most likely related to severe sepsis, but may have underlying dementia. * CT head unremarkable * EEG abnormal and suggestive of metabolic encephalopathy * Continued antibiotics as above. * B12, folate and TSH all within normal limits. (7) DVT (deep venous thrombosis): Qualifiers: Affected thrombotic vein of extremity: femoral Chronicity: acute DVT location: lower extremity Laterality: left Qualified Code(s): I82.412 - Acute embolism and thrombosis of left femoral vein Code(s): I82.409 - Acute em
--- NOTE | 2022-12-03 09:33 | PM.DS ---
DS: Admitting Diagnosis Discharge Date 12/03/2022 Admitting Diagnosis Severe sepsis without septic shock Urinary tract infection, site not specified Metabolic encephalopathy DVT (deep venous thrombosis) Acute kidney failure, unspecified DS: Discharge Diagnosis Discharge Diagnosis (1) Severe sepsis: Code(s): A41.9 - Sepsis, unspecified organism; R65.20 - Severe sepsis without septic shock Status: Resolved Assessment and Plan: Secondary to UTI 11/24/22 Blood culture and urine culture growing E coli pansensitive. Treated with IV fluids Initiated on IV antibiotics, then transitioned to PO for 10-14 days total for bacteremia from negative blood cultures. 12/01/22 repeat blood cultures negative to date. (2) UTI (urinary tract infection): Qualifiers: Hematuria presence: without hematuria Urinary tract infection type: site unspecified Qualified Code(s): N39.0 - Urinary tract infection, site not specified Code(s): N39.0 - Urinary tract infection, site not specified Status: Acute Assessment and Plan: UA concerning for infection on admission. Treated with 11/29 Aztreonam 11/24-11/29/22, transition to p.o. Levaquin on 11/29- current for total of 5 additional days. Blood & Urine culture growing sensitive E coli Monitor urine outpatient and temperature curve. 12/02/22 changed levaquin to Q48 hours due to renal function, continue until last dose 12/05/22 (3) Bacteremia due to Escherichia coli: Code(s): R78.81 - Bacteremia; B96.20 - Unspecified Escherichia coli [E. coli] as the cause of diseases classified elsewhere Status: Acute Assessment and Plan: Secondary to UTI. E.coli growth in both bottles drawn 11/24/22. Repeat blood cultures 12/01/22 for clearance- negative to date. Antibiotics as above. (4) Acute renal failure: Qualifiers: Acute renal failure type: unspecified Qualified Code(s): N17.9 - Acute kidney failure, unspecified Code(s): N17.9 - Acute kidney failure, unspecified Status: Resolved Assessment and Plan: BUN and creatinine elevated on admission. Likely secondary to acute infection. Renal ultrasound normal 12/02/22 BUN 22, creatinine 1.6, GFR 32 and trending up. Patient had normal creatinine 11/28-11/30 after receiving IV fluids. Push oral fluids 12/02/22 Started NS@100 mL/hour and repeat BMP in am. Adjusted Levaquin dose to Q48 hours given decreased CrCl 12/03/22 improved. (5) Diabetes: Code(s): E11.9 - Type 2 diabetes mellitus without complications Status: Chronic Assessment and Plan: Chronic, noninsulin dependent diabetes. Held metformin and Tradjenta inpatient. Accu-checks AC/HS with meal/HS insulin sliding scale Hypoglycemia protocol goal glucose <180 mg/dL while inpatient (6) Acute metabolic encephalopathy: Code(s): G93.41 - Metabolic encephalopathy Status: Acute Assessment and Plan: most likely related to severe sepsis, but may have underlying dementia. CT head unremarkable EEG abnormal and suggestive of metabolic encephalopathy Continued antibiotics as above. B12, folate and TSH all within normal limits. (7) DVT (deep venous thrombosis): Qualifiers: Affected thrombotic vein of extremity: femoral Chronicity: acute DVT location: lower extremity Laterality: left Qualified Code(s): I82.412 - Acute embolism and thrombosis of left femoral vein Code(s): I82.409 - Acute embolism and thrombosis of unspecified deep veins of unspecified lower extremity Status: Acute Assessment and Plan: DVT from the distal superficial femoral vein to the posterior tibila and peroneal veins, subacute or chronic Patient received Lovenox in the ED and then Eliquis was started. Continue anticoagulation treatment dose started; 10 mg PO BID until 12/02/22 then 5 mg BID (8) Neck pain: Code(s): M54.2 - Cervicalgia
[2022-12-03 09:49] VITALS: O2SAT 96
[2022-12-03] MEDS: BISACODYL 5 MG TABLET EC PO (10:58)
[2022-12-03 12:02] LABS: Glucose Point of Care 104 mg/dl (65-105)
== END 2022-12-03 13:45 | DRG 871 ==
LOC: ANHED 17:44 → ANHIMU 11-25 04:44 → ANH3MED 11-30 09:41 → ANHIMU 12-06 12:37
PROVIDERS: Hospitalist; Internal Medicine; Internal Medicine Critical Care Medicine; Admitting Provider Internal Medicine; Emergency Provider Physician Assistant; PCP Internal Medicine; Visit Provider Nurse Practitioner Family
DX: A41.51 Sepsis due to Escherichia coli [E. coli] (principal); G93.41 Metabolic encephalopathy; N39.0 Urinary tract infection, site not specified; N17.9 Acute kidney failure, unspecified; I82.412 Acute embolism and thrombosis of left femoral vein; I82.452 Acute embolism and thrombosis of left peroneal vein; I82.442 Acute embolism and thrombosis of left tibial vein; C92.01 Acute myeloblastic leukemia, in remission; B96.20 Unspecified Escherichia coli [E. coli] as the cause of diseases classified elsewhere; R65.20 Severe sepsis without septic shock; E11.9 Type 2 diabetes mellitus without complications; E78.5 Hyperlipidemia, unspecified; I10 Essential (primary) hypertension; M54.2 Cervicalgia; Z88.0 Allergy status to penicillin; Z85.41 Personal history of malignant neoplasm of cervix uteri; Z90.710 Acquired absence of both cervix and uterus; Z79.84 Long term (current) use of oral hypoglycemic drugs
CPT/HCPCS: 36415; 70450; 71045; 74176; 76775; 80048; 80053; 80069; 81001; 82140; 82550; 82607; 82746; 82948; 83605; 83735; 84145; 84443; 85025; 85027; 85055; 85610; 85730; 86140; 87040; 87077; 87086; 87088; 87186; 93005; 93971; 95816; 96361; 96365; 96367; 96375; 97110; 97162; 97165; 97530; 97535; 99285; A9270; J0131; J1815; J2405; J3475; J7030